=== PATIENT | female | born 1950 | race African-American/Black ===

== ENCOUNTER 2021-01-23 09:42 | Inpatient (IN) | payer BC ==
[~2021-01-23] VITALS: Ht 165.1 cm; Wt 89.9 kg
--- NOTE | 2021-01-23 10:44 | RAD ---
CT of the chest without contrast: Clinical History: Reason: fell on stair steps, landed on back, ribs pain, chest pain, back pain / Sp l. Instructions: / History: . Axial helical images of the chest were obtained without contrast. Mild groundglass opacities likely discoid atelectasis. There is a moderate hiatal hernia. There is no mediastinal or hilar lymphadenopathy. Impression: No acute findings. End impression CT thoracic spine without contrast History: Reason: fell on stair steps, landed on back, ribs pain, chest pain, back pain / Spl. Instruc tions: / History: Axial helical images of the thoracic spine were obtained without contrast. Axial, coronal and sagitta l reconstruction was performed. Findings: There is a mildly comminuted fracture of the T8 vertebral body with mild to moderate loss of stature anteriorly and centrally to approximately 65 percent and wedge-shaped deformity. Fracture lines are s een throughout the vertebral body although there is no fracture lines in the pedicles. There is no re tropulsion. The remaining vertebral bodies have normal stature. There is mild kyphosis. The vertebral bodies are aligned. Evaluation of the central canal is limited without contrast. There is no evidence of significant cent ral stenosis. There is marked narrowing of the right T8-T9 neuroforamen. Impression: Acute T8 vertebral body compression fracture with marked narrowing of the right neuroforamen at T8-T9 . End impression CT lumbar spine without contrast History: Back pain Axial helical images of the lumbar spine were obtained without contrast. Axial, coronal and sagittal reconstruction was performed. Findings: The vertebral bodies are aligned. There is no loss of vertebral body stature. Evaluation of the central canal is limited without contrast. There is no significant central or neuro foraminal stenosis. There is a 2.5 cm hypoattenuating lesion arising posteriorly from the right kidney. Impression: 1. Indeterminate lesion right kidney. The patient should've a follow-up ultrasound as an outpatient. 2. No acute findings in the lumbosacral spine. See CT thoracic spine. End impression PQRS Compliance Statement: One or more of the following individualized dose reduction techniques were utilized for this examinat ion: 1. Automated exposure control 2. Adjustment of the mA and/or kV according to patient size 3. Use of iterative reconstruction technique Electronically signed by: Gabino Lo III, MD (01/23/2021 10:42 AM) [facility]
[2021-01-23] MEDS ORDERED: HYDROcodone/APAP 5/325MG 1 TAB TABLET PO ONE (10:45)
[2021-01-23] MEDS ORDERED: HYDROcodone/APAP 5/325MG 1 TAB TABLET ONE (10:47)
--- NOTE | 2021-01-23 11:36 | PHYS DOC ---
Past Medical History Past Medical History: Diabetes-Type II, High Cholesterol, Hypertension Past Surgical History: Hysterectomy Smoking Status: Never Smoker Alcohol Use: None General Adult EDM: Chief Complaint: MECHANICAL FALL HPI: HPI: Patient is a 70 year old female who presented to ER for evaluation of mid back pain after she fell at home. Patient said she was walking down stair, slipped on the carpet step, hit her back on the step. No head or neck injury. No pelvic pain, no extremity pain. She denied any bowel or bladder incontinent. Patient denies any nausea vomiting. Patient denies any weakness or numbness in her extremities. Review of Systems: Review of Systems: Constitutional: Denies fever or chills. [] Eyes: Denies change in visual acuity. [] HENT: Denies nasal congestion or sore throat. [] Respiratory: Denies cough or shortness of breath. [] Cardiovascular: Denies chest pain or edema. [] GI: Denies abdominal pain, nausea, vomiting, bloody stools or diarrhea. [] : Denies dysuria. [] Musculoskeletal: positive midback pain. Integument: Denies rash. [] Neurologic: Denies headache, focal weakness or sensory changes. [] Endocrine: Denies polyuria or polydipsia. [] Lymphatic: Denies swollen glands. [] Psychiatric: Denies depression or anxiety. [] Heart Score: C/O Chest Pain: N/A Risk Factors: Risk Factors: DM, Current or recent (<one month) smoker, HTN, HLP, family history of CAD, obesity. Risk Scores: Score 0 - 3: 2.5% MACE over next 6 weeks - Discharge Home Score 4 - 6: 20.3% MACE over next 6 weeks - Admit for Clinical Observation Score 7 - 10: 72.7% MACE over next 6 weeks - Early Invasive Strategies Current Medications: Current Medications Medications (Trade) Dose Ordered Sig/Meme Start Time Stop Time Status Last Admin Dose Admin Acetaminophen/ Hydrocodone Bitart (Lortab 5/325) 1 tab STK-MED ONCE 01/23/21 10:47 01/23/21 10:47 DC Allergies: Allergies: Allergies Coded Allergies Type Severity Reaction Last Updated Verified acetaminophen Adverse Reaction Unknown 01/23/21 Yes codeine Adverse Reaction Unknown 01/23/21 Yes Physical Exam: PE: Constitutional: Well developed, well nourished, no acute distress, non-toxic ap pearance. [] HENT: Normocephalic, atraumatic, bilateral external ears normal, oropharynx moist, no oral exudates, nose normal. [] Eyes: PERRLA, EOMI, conjunctiva normal, no discharge. [] Neck: Normal range of motion, no tenderness, supple, no stridor. [] Cardiovascular:Heart rate regular rhythm, no murmur [] Lungs & Thorax: Bilateral breath sounds clear to auscultation [] Abdomen: Bowel sounds normal, soft, no tenderness, no masses, no pulsatile masses. [] Skin: Warm, dry, no erythema, no rash. [] Back: There is midline tenderness to palpation at T8/T9 AREA. NO BONY STEP OFF. Extremities: No tenderness, no cyanosis, no clubbing, ROM intact, no edema. [] Neurologic: Alert and oriented X 3, normal motor function, normal sensory function, no focal deficits noted. [] Psychologic: Affect normal, judgement normal, mood normal. [] Current Patient Data: Vital Signs: Vital Signs Date Time Temp Pulse Resp B/P (MAP) Pulse Ox O2 Delivery O2 Flow Rate FiO2 01/23/21 10:49 16 99 Room Air 01/23/21 09:45 98.9 67 184/86 (118) 98.9 EKG: EKG: [] Radiology/Procedures: Radiology/Procedures: [][facility] [address] [place] [address] IMAGING REPORT Signed PATIENT: TALI MCCOLLUM ACCOUNT: [id number] : 1950 LOCATION: ER AGE: 70 SEX: F EXAM STATUS: PRE ER ORD. PHYSICIAN: ABHI CASTRO DO REASON: fell on stair steps, landed on back, ribs pain, chest pain, back pain PROCEDURE: CT THORACIC SPINE WO CONTRAST CT of the chest without contrast: Clinical History: Reason: fell on stair steps, landed on back, ribs pain, chest pain, back pain / Spl. Instructions: / History: . Axial helical images of the chest were obtained without contrast. Mild groundglass opacities likely discoid atelectasis. There is a moderate hiatal hernia. There is no mediastinal or hilar lymphadenopathy. Impression: No acute findings. End impression CT thoracic spine without contrast History: Reason: fell on stair steps, landed on back, ribs pain, chest pain, back pain / Spl. Instructions: / History: Axial helical images of the thoracic spine were obtained without contrast. Axial, coronal and sagittal reconstruction was performed. Findings: There is a mildly comminuted fracture of the T8 vertebral body with mild to moderate loss of stature anteriorly and centrally to approximately 65 percent and wedge-shaped deformity. Fracture lines are seen throughout the vertebral body although there is no fracture lines in the pedicles. There is no retropulsion. The remaining vertebral bodies have normal stature. There is mild kyphosis. The vertebral bodies are aligned. Evaluation of the central canal is limited without contrast. There is no evidence of significant central stenosis. There is marked narrowing of the right T8-T9 neuroforamen. Impression: Acute T8 vertebral body compression fracture with marked narrowing of the right neuroforamen at T8-T9. End impression CT lumbar spine without contrast History: Back pain Axial helical images of the lumbar spine were obtained without contrast. Axial, coronal and sagittal reconstruction was performed. Findings: The vertebral bodies are aligned. There is no loss of vertebral body stature. Evaluation of the central canal is limited without contrast. There is no significant central or neuroforaminal stenosis. There is a 2.5 cm hypoattenuating lesion arising posteriorly from the right kidney. Impression: 1. Indeterminate lesion right kidney. The patient should've a follow-up ul trasound as an outpatient. 2. No acute findings in the lumbosacral spine. See CT thoracic spine. End impression PQRS Compliance Statement: One or more of the following individualized dose reduction techniques were utilized for this examination: 1. Automated exposure control 2. Adjustment of the mA and/or kV according to patient size 3. Use of iterative reconstruction technique Electronically signed by: Antione Ramirez III, MD (01/23/2021 10:42 AM) [facility] DICTATED and SIGNED BY: ANTIONE RAMIREZ III, MD DATE: 01/23/21 [id number] 0 Course & Med Decision Making: Course & Med Decision Making Pertinent Labs and Imaging studies reviewed. (See chart for details) Patient is a 70-year-old female who presented to ER after she fell walking down her stairs. Patient hit her back on the step, having severe pain. CT scan her chest thoracic lumbar spine show compression fracture at T8. Patient had no neurological deficits. Discussed with the neurosurgeon on-call Dr. Shyam Figueroa who recommended to admit the patient to hospital, bedrest, will see her today for evaluation for TLSO brace. Discussed with Dr. Underwood the hospitalist who agreed to admit the patient Dragon Disclaimer: Valerio Disclaimer: This electronic medical record was generated, in whole or in part, using a voice recognition dictation system. Departure Departure Impression: Primary Impression: Compression fracture of T8 vertebra Disposition: ADMITTED INPATIENT Admitting Physician: [facility] (Dr. Underwood) Condition: STABLE Referrals: EJ LAN MD (PCP) ABHI CASTRO DO January 23, 2021 11:36
[2021-01-23] MEDS ORDERED: MORPHINE SULFATE 2 MG/ML VIAL. IV PRN (12:00)
[2021-01-23] MEDS ORDERED: ONDANSETRON PF 4 MG/2 ML VIAL. IV PRN (12:00)
[2021-01-23 14:00] VITALS: BP 161/61
[2021-01-23] MEDS ORDERED: LISI1TAB37 PO (14:32)
[2021-01-23] MEDS ORDERED: METF500T16 PO (14:32)
[2021-01-23] MEDS ORDERED: ROSU10TA26 PO (14:32)
[2021-01-23] MEDS ORDERED: amLODIPine BESYLATE 5 MG TABLET PO ONE (15:00)
[2021-01-23] MEDS ORDERED: POLYETHYLENE GLYCOL 3350 17 GM PACKET. PO PRN (15:00)
[2021-01-23] MEDS: DOCUSATE SODIUM 100 MG CAPSULE. PO SCH (15:34)
[2021-01-23] MEDS: oxyCODONE/APAP 5/325 1 TAB TABLET PO PRN ×2 (15:57→20:53)
--- NOTE | 2021-01-23 16:14 | PDOC ---
PROGRESS NOTES Date of Service DATE: 01/23/21 TIME: 16:11 Subjective Subjective patient seen and examined consulted for thoracic fracture fell walking down stairs, landed on back c/o severe back pain, no lower extremity symptoms neuro intact, tenderness with palaption of lower thoracic region CT with complex fracture of body of T8, posterior elements intact brace ordered, bedrest until brace available Consult Dr. Mcguire Objective Objective Vital Signs Date Time Temp Pulse Resp B/P (MAP) Pulse Ox O2 Delivery O2 Flow Rate FiO2 01/23/21 15:57 Room Air 01/23/21 15:53 63 161/61 01/23/21 14:00 98.6 18 99 98.6 Assessment Assessment Problems Medical Problems: (1) Compression fracture of T8 vertebra Status: Acute Comment Review of Relevant I have reviewed the following items felisha (where applicable) has been applied. Labs Laboratory Tests Test 01/23/21 14:21 Glucose (Fingerstick) 111 mg/dL (70-99) Laboratory Tests Test 01/23/21 14:21 Glucose (Fingerstick) 111 mg/dL (70-99) Medications Current Medications Acetaminophen/ Hydrocodone Bitart (Lortab 5/325) 2 tab 1X ONCE PO Last administered on 01/23/21at 10:49; Start 01/23/21 at 10:45; Stop 01/23/21 at 10:47; Status DC Acetaminophen/ Hydrocodone Bitart (Lortab 5/325) 1 tab STK-MED ONCE .ROUTE ; Start 01/23/21 at 10:47; Stop 01/23/21 at 10:47; Status DC Ondansetron HCl (Zofran) 4 mg PRN Q8HRS PRN IV NAUSEA/VOMITING; Start 01/23/21 at 12:00; Stop 01/24/21 at 11:59 Morphine Sulfate (Morphine Sulfate) 2 mg PRN Q2HR PRN IV PAIN; Start 01/23/21 at 12:00; Stop 01/24/21 at 11:59 Oxycodone/ Acetaminophen (Percocet 5/325) 1 tab PRN Q4HRS PRN PO PAIN Last administered on 01/23/21at 15:57; Start 01/23/21 at 15:00 Polyethylene Glycol (miraLAX PACKET) 17 gm PRN DAILY PRN PO CONSTIPATION; Start 01/23/21 at 15:00 Metformin HCl (Glucophage) 500 mg NOON PO ; Start 01/24/21 at 12:00 Lisinopril (Prinivil) 20 mg DAILY PO ; Start 01/24/21 at 09:00 Atorvastatin Calcium (Lipitor) 40 mg DAILY PO ; Start 01/24/21 at 09:00 Amlodipine Besylate (Norvasc) 2.5 mg 1X ONCE PO Last administered on 01/23/21at 15:53; Start 01/23/21 at 15:00; Stop 01/23/21 at 15:01; Status DC Hydrochlorothiazide (Microzide) 12.5 mg DAILY PO ; Start 01/24/21 at 09:00 Docusate Sodium (Colace) 100 mg DAILY PO ; Start 01/23/21 at 16:00 Active Scripts Active Reported Lisinopril-Hctz 20-12.5 Mg Tab (Lisinopril/Hydrochlorothiazide) 1 Each Tablet 1 Tab PO DAILY Metformin Hcl 500 Mg Tablet 500 Mg PO NOON Rosuvastatin Calcium 10 Mg Tablet 10 Mg PO DAILY Vitals/I & O Vital Sign - Last 24 Hours 01/23/21 01/23/21 01/23/21 01/23/21 09:45 10:24 10:49 10:58 Temp 98.9 98.9 Pulse 67 67 66 Resp 16 16 16 16 B/P (MAP) 184/86 (118) 203/88 (126) 184/77 (112) Pulse Ox 96 99 99 99 O2 Delivery Room Air Room Air Room Air Room Air 01/23/21 01/23/21 01/23/21 01/23/21 11:28 14:00 15:53 15:57 Temp 98.6 98.6 Pulse 62 63 63 Resp 16 18 B/P (MAP) 192/79 (116) 161/61 (94) 161/61 Pulse Ox 99 99 O2 Delivery Room Air Room Air Room Air Justifications for Admission Other Justification ALEKSANDAR FARLEY MD January 23, 2021 16:14
--- NOTE | 2021-01-23 17:24 | PDOC1 ---
History and Physical Date of Admission Date of Admission DATE: 01/23/21 TIME: 17:20 Source Source: Chart review, Patient History of Present Illness History of Present Illness Ms. bland, is a 70 year old female who is admitted for acute back pain after a fall. She was walking down stair, slipped on the carpet step, hit her back on the step. did not lose consciousness, and now has back pain, better with PO meds, will need soem more soon. she had questions about when she could get up or to shower. No head or neck injury. No pelvic pain, no extremity pain. Past Medical History Cardiovascular: HTN Musculoskeletal: low back pain Rheumatologic: No pertinent hx Endocrine: Diabetes Past Surgical History Past Surgical History: No pertinent history Family History Family History: Other (DVT) Social History Smoke: No ALCOHOL: none Drugs: None Current Problem List Problem List Problems Medical Problems: (1) Compression fracture of T8 vertebra Status: Acute Current Medications Current Medications Current Medications Acetaminophen/ Hydrocodone Bitart (Lortab 5/325) 2 tab 1X ONCE PO Last administered on 01/23/21at 10:49; Start 01/23/21 at 10:45; Stop 01/23/21 at 10:47; Status DC Acetaminophen/ Hydrocodone Bitart (Lortab 5/325) 1 tab STK-MED ONCE .ROUTE ; Start 01/23/21 at 10:47; Stop 01/23/21 at 10:47; Status DC Ondansetron HCl (Zofran) 4 mg PRN Q8HRS PRN IV NAUSEA/VOMITING; Start 01/23/21 at 12:00; Stop 01/24/21 at 11:59 Morphine Sulfate (Morphine Sulfate) 2 mg PRN Q2HR PRN IV PAIN; Start 01/23/21 at 12:00; Stop 01/24/21 at 11:59 Oxycodone/ Acetaminophen (Percocet 5/325) 1 tab PRN Q4HRS PRN PO PAIN Last administered on 01/23/21at 15:57; Start 01/23/21 at 15:00 Polyethylene Glycol (miraLAX PACKET) 17 gm PRN DAILY PRN PO CONSTIPATION; Start 01/23/21 at 15:00 Metformin HCl (Glucophage) 500 mg NOON PO ; Start 01/24/21 at 12:00 Lisinopril (Prinivil) 20 mg DAILY PO ; Start 01/24/21 at 09:00 Atorvastatin Calcium (Lipitor) 40 mg DAILY PO ; Start 01/24/21 at 09:00 Amlodipine Besylate (Norvasc) 2.5 mg 1X ONCE PO Last administered on 01/23/21at 15:53; Start 01/23/21 at 15:00; Stop 01/23/21 at 15:01; Status DC Hydrochlorothiazide (Microzide) 12.5 mg DAILY PO ; Start 01/24/21 at 09:00 Docusate Sodium (Colace) 100 mg DAILY PO ; Start 01/23/21 at 16:00 Active Scripts Active Reported Lisinopril-Hctz 20-12.5 Mg Tab (Lisinopril/Hydrochlorothiazide) 1 Each Tablet 1 Tab PO DAILY Metformin Hcl 500 Mg Tablet 500 Mg PO NOON Rosuvastatin Calcium 10 Mg Tablet 10 Mg PO DAILY Allergies Allergies: Coded Allergies: acetaminophen (Verified Adverse Reaction, Unknown, 01/23/21) dizziness codeine (Verified Adverse Reaction, Unknown, 01/23/21) dizziness ROS General: No: Chills, Night Sweats, Fatigue, Malaise, Appetite, Other PSYCHOLOGICAL ROS: No: Anxiety, Behavioral Disorder, Concentration difficultie, Decreased libido, Depression, Disorientation, Hallucinations, Hostility, Irritablity, Memory difficulties, Mood Swings, Obsessive thoughts, Physical abuse, Sexual abuse, Sleep disturbances, Suicidal ideation, Other Eyes: No Blurry vision, No Decreased vision, No Double vision, No Dry eyes, No Excessive tearing, No Eye Pain, No Itchy Eyes, No Loss of vision, No P hotophobia, No Scotomata, No Uses contacts, No Uses glasses, No Other HEENT: No: Heacaches, Visual Changes, Hearing change, Nasal congestion, Nasal discharge, Oral lesions, Sinus pain, Sore Throat, Epistaxis, Sneezing, Snoring, Tinnitus, Vertigo, Vocal changes, Other Respiratory: No: Cough, Hemoptysis, Orthopnea, Pleuritic Pain, Shortness of breath, SOB with excertion, Sputum Changes, Stridor, Tachypnea, Wheezing, Other Cardiovascular: No Chest Pain, No Palpitations, No Orthopnea, No Paroxysmal Noc. Dyspnea, No Edema, No Lt Headedness, No Other Gastrointestinal: Yes Constipation (at times); No Nausea, No Vomiting, No Abdominal Pain, No Diarrhea, No Melena, No Hematochezia, No Other Genitourinary: No Dysuria, No Frequency, No Incontinence, No Hematuria, No Retention, No Discharge, No Urgency, No Pain, No Flank Pain, No Other, No , No , No , No , No , No , No Musculoskeletal: Yes Joint Pain, Yes Joint Stiffness Neurological: Yes Gait Disturbance; No Behavorial Changes, No Bowel/Bladder ControlChng, No Confusion, No Dizziness, No Headaches, No Impaired Coord/balance, No Memory Loss, No Numbness/Tingling, No Seizures, No Speech Problems, No Tremors, No Visual Changes, No Weakness, No Other Skin: No Dry Skin, No Eczema, No Hair Changes, No Lumps, No Mole Changes, No Mottling, No Nail Changes, No Pruritus, No Rash, No Skin Lesion Changes, No Other, No Acne Physical Exam General: Alert, Cooperative, mild distress HEENT: PERRLA, Mucous membr. moist/pink Heart: no gallops, no murmurs Extremities: No cyanosis, No edema, Normal pulses Skin: No breakdown Neuro: Normal gait, Normal tone Psych/Mental Status: Mood NL Vitals Vitals Vital Signs Date Time Temp Pulse Resp B/P (MAP) Pulse Ox O2 Delivery O2 Flow Rate FiO2 01/23/21 16:27 Room Air 01/23/21 15:53 63 161/61 01/23/21 14:00 98.6 18 99 98.6 Labs Labs Laboratory Tests Test 01/23/21 14:21 Glucose (Fingerstick) 111 mg/dL (70-99) Laboratory Tests Test 01/23/21 14:21 Glucose (Fingerstick) 111 mg/dL (70-99) VTE Prophylaxis Ordered VTE Prophylaxis Devices: No VTE Pharmacological Prophylaxi: Yes Assessment/Plan Assessment/Plan fall, back pain acute T8 fracture, seen by NS, will need back brace to get up, try PT and OT after obese, BMI 31 htn dm2, metformin admit for back pain, not-ambulatory until brace constipation risk, 2 meds fam hx DVT, lovenox Justifications for Admission Other Justification ORVILLE PAZ MD January 23, 2021 17:24
[2021-01-23] MEDS ORDERED: ENOXAPARIN 40 MG/0.4 ML SYRINGE. SQ SCH (18:00)
[2021-01-23 19:00] VITALS: BP 154/64
[2021-01-23 23:00] VITALS: BP 145/57
[2021-01-24 03:00] VITALS: BP 136/62
[2021-01-24 07:00] VITALS: BP 157/64
[2021-01-24] MEDS: hydroCHLOROthiazide 12.5 MG CAPSULE PO SCH (08:05)
[2021-01-24] MEDS: ATORVASTATIN CALCIUM 40 MG TABLET. PO SCH (08:05)
[2021-01-24] MEDS: oxyCODONE/APAP 5/325 1 TAB TABLET PO PRN ×4 (08:05→23:16)
[2021-01-24] MEDS: LISINOPRIL 20 MG TABLET PO SCH (08:05)
[2021-01-24] MEDS: DOCUSATE SODIUM 100 MG CAPSULE. PO SCH (08:12)
--- NOTE | 2021-01-24 10:35 | PDOC ---
PROGRESS NOTES Date of Service: DATE: 01/24/21 TIME: 10:43 Chief Complaint Chief Complaint VTE Prophylaxis Ordered VTE Prophylaxis Devices: No VTE Pharmacological Prophylaxi: Yes Assessment/Plan Assessment/Plan fall, back pain acute T8 fracture, seen by NS, will need back brace to get up, try PT and OT after marked narrowing of the right T8-T9 neuroforamen. mildly comminuted fracture of the T8 vertebral body with mild to moderate loss of stature anteriorly and centrally to approximately 65 percent and wedge-shaped deformity. Fracture lines are seen throughout the vertebral body although there is no fracture lines in the pedicles. no retropulsion. obese, BMI 31 htn dm2, metformin plan admit for acute intractable back pain, not-ambulatory until brace constipation risk, 2 meds Neurosurgery consult fam hx DVT, lovenox brace ordered, bedrest until brace available Consult Dr. Mcguire d/w rn Justifications for Admission Justifications for Admission Other Justification History of Present Illness History of Present Illness Source Source: Chart review, Patient History of Present Illness History of Present Illness Ms. bland, is a 70 year old female who is admitted for acute back pain after a fall. She was walking down stair, slipped on the carpet step, hit her back on the step. did not lose consciousness, and now has back pain, better with PO meds, will need soem more soon. she had questions about when she could get up or to shower. No head or neck injury. No pelvic pain, no extremity pain. Past Medical History Cardiovascular: HTN Musculoskeletal: low back pain Rheumatologic: No pertinent hx Endocrine: Diabetes Past Surgical History Past Surgical History: No pertinent history Family History Family History: Other (DVT) Social History Smoke: No ALCOHOL: none Drugs: None Current Problem List Problem List Problems Medical Problems: (1) Compression fracture of T8 vertebra Status: Acute Current Medications Current Medications Current Medications Acetaminophen/ Hydrocodone Bitart (Lortab 5/325) 2 tab 1X ONCE PO Last administered on 01/23/21at 10:49; Start 01/23/21 at 10:45; Stop 01/23/21 at 10:47; Status DC Acetaminophen/ Hydrocodone Bitart (Lortab 5/325) 1 tab STK-MED ONCE .ROUTE ; Start 01/23/21 at 10:47; Stop 01/23/21 at 10:47; Status DC Ondansetron HCl (Zofran) 4 mg PRN Q8HRS PRN IV NAUSEA/VOMITING; Start 01/23/21 at 12:00; Stop 01/24/21 at 11:59 Morphine Sulfate (Morphine Sulfate) 2 mg PRN Q2HR PRN IV PAIN; Start 01/23/21 at 12:00; Stop 01/24/21 at 11:59 Oxycodone/ Acetaminophen (Percocet 5/325) 1 tab PRN Q4HRS PRN PO PAIN Last administered on 01/23/21at 15:57; Start 01/23/21 at 15:00 Polyethylene Glycol (miraLAX PACKET) 17 gm PRN DAILY PRN PO CONSTIPATION; Start 01/23/21 at 15:00 Metformin HCl (Glucophage) 500 mg NOON PO ; Start 01/24/21 at 12:00 Lisinopril (Prinivil) 20 mg DAILY PO ; Start 01/24/21 at 09:00 Atorvastatin Calcium (Lipitor) 40 mg DAILY PO ; Start 01/24/21 at 09:00 Amlodipine Besylate (Norvasc) 2.5 mg 1X ONCE PO Last administered on 01/23/21at 15:53; Start 01/23/21 at 15:00; Stop 01/23/21 at 15:01; Status DC Hydrochlorothiazide (Microzide) 12.5 mg DAILY PO ; Start 01/24/21 at 09:00 Docusate Sodium (Colace) 100 mg DAILY PO ; Start 01/23/21 at 16:00 Active Scripts Active Reported Lisinopril-Hctz 20-12.5 Mg Tab (Lisinopril/Hydrochlorothiazide) 1 Each Tablet 1 Tab PO DAILY Metformin Hcl 500 Mg Tablet 500 Mg PO NOON Rosuvastatin Calcium 10 Mg Tablet 10 Mg PO DAILY Allergies Allergies: Coded Allergies: acetaminophen (Verified Adverse Reaction, Unknown, 01/23/21) dizziness codeine (Verified Adverse Reaction, Unknown, 01/23/21) dizziness ROS General: No: Chills, Night Sweats, Fatigue, Malaise, Appetite, Other PSYCHOLOGICAL ROS: No: Anxiety, Behavioral Disorder, Concentration difficultie, Decreased libido, Depression, Disorientation, Hallucinations, Hostility, Irritablity, Memory difficulties, Mood Swings, Obsessive thoughts, Physical abuse, Sexual abuse, Sleep disturbances, Suicidal ideation, Other Eyes: No Blurry vision, No Decreased vision, No Double vision, No Dry eyes, No Excessive tearing, No Eye Pain, No Itchy Eyes, No Loss of vision, No Photophobi a, No Scotomata, No Uses contacts, No Uses glasses, No Other HEENT: No: Heacaches, Visual Changes, Hearing change, Nasal congestion, Nasal discharge, Oral lesions, Sinus pain, Sore Throat, Epistaxis, Sneezing, Snoring, Tinnitus, Vertigo, Vocal changes, Other Respiratory: No: Cough, Hemoptysis, Orthopnea, Pleuritic Pain, Shortness of breath, SOB with excertion, Sputum Changes, Stridor, Tachypnea, Wheezing, Other Cardiovascular: No Chest Pain, No Palpitations, No Orthopnea, No Paroxysmal Noc. Dyspnea, No Edema, No Lt Headedness, No Other Gastrointestinal: Yes Constipation (at times); No Nausea, No Vomiting, No Abdominal Pain, No Diarrhea, No Melena, No Hematochezia, No Other Genitourinary: No Dysuria, No Frequency, No Incontinence, No Hematuria, No Retention, No Discharge, No Urgency, No Pain, No Flank Pain, No Other, No , No , No , No , No , No , No Musculoskeletal: Yes Joint Pain, Yes Joint Stiffness Neurological: Yes Gait Disturbance; No Behavorial Changes, No Bowel/Bladder ControlChng, No Confusion, No Dizziness, No Headaches, No Impaired Coord/balance, No Memory Loss, No Numbness/Tingling, No Seizures, No Speech Problems, No Tremors, No Visual Changes, No Weakness, No Other Skin: No Dry Skin, No Eczema, No Hair Changes, No Lumps, No Mole Changes, No Mottling, No Nail Changes, No Pruritus, No Rash, No Skin Lesion Changes, No Other, No Acne Vitals Vitals Vital Signs Date Time Temp Pulse Resp B/P (MAP) Pulse Ox O2 Delivery O2 Flow Rate FiO2 01/24/21 08:05 67 136/62 01/24/21 08:05 Room Air 01/24/21 03:00 98.4 18 93 98.4 Physical Exam General: Alert, Cooperative, mild distress Extremities: No cyanosis, No edema, Normal pulses Skin: No breakdown Labs LABS CT of the chest without contrast: Clinical History: Reason: fell on stair steps, landed on back, ribs pain, chest pain, back pain / Spl. Instructions: / History: . Axial helical images of the chest were obtained without contrast. Mild groundglass opacities likely discoid atelectasis. There is a moderate hiatal hernia. There is no mediastinal or hilar lymphadenopathy. Impression: No acute findings. End impression CT thoracic spine without contrast History: Reason: fell on stair steps, landed on back, ribs pain, chest pain, back pain / Spl. Instructions: / History: Axial helical images of the thoracic spine were obtained without contrast. Axial, coronal and sagittal reconstruction was performed. Findings: There is a mildly comminuted fracture of the T8 vertebral body with mild to moderate loss of stature anteriorly and centrally to approximately 65 percent and wedge-shaped deformity. Fracture lines are seen throughout the vertebral body although there is no fracture lines in the pedicles. There is no retropulsion. The remaining vertebral bodies have normal stature. There is mild kyphosis. The vertebral bodies are aligned. Evaluation of the central canal is limited without contrast. There is no evidence of significant central stenosis. There is marked narrowing of the right T8-T9 neuroforamen. Impression: Acute T8 vertebral body compression fracture with marked narrowing of the right neuroforamen at T8-T9. End impression CT lumbar spine without contrast History: Back pain Axial helical images of the lumbar spine were obtained without contrast. Axial, coronal and sagittal reconstruction was performed. Findings: The vertebral bodies are aligned. There is no loss of vertebral body stature. Evaluation of the central canal is limited without contrast. There is no significant central or neuroforaminal stenosis. There is a 2.5 cm hypoattenuating lesion arising posteriorly from the right kidney. Impression: 1. Indeterminate lesion right kidney. The patient should've a follow-up ultrasound as an outpatient. 2. No acute findings in the lumbosacral spine. See CT thoracic spine. End impression PQRS Compliance Statement: One or more of the following individualized dose reduction techniques were utilized for this examination: 1. Automated exposure control 2. Adjustment of the mA and/or kV according to patient size 3. Use of iterative reconstruction technique Electronically signed by: Antione Ramirez III, MD (01/23/2021 10:42 AM) [facility] DICTATED and SIGNED BY: ANTIONE RAMIREZ III, MD DATE: 01/23/21 [id number] Laboratory Tests Test 01/23/21 14:21 01/24/21 07:47 Glucose (Fingerstick) 111 mg/dL (70-99) 126 mg/dL (70-99) Assessment and Plan Assessmemt and Plan Problems Medical Problems: (1) Compression fracture of T8 vertebra Status: Acute Comment Review of Relevant I have reviewed the following items felisha (where applicable) has been applied. Labs Laboratory Tests Test 01/23/21 14:21 01/24/21 07:47 Glucose (Fingerstick) 111 mg/dL (70-99) 126 mg/dL (70-99) Laboratory Tests Test 01/23/21 14:21 01/24/21 07:47 Glucose (Fingerstick) 111 mg/dL (70-99) 126 mg/dL (70-99) Medications Current Medications Acetaminophen/ Hydrocodone Bitart (Lortab 5/325) 2 tab 1X ONCE PO Last administered on 01/23/21at 10:49; Start 01/23/21 at 10:45; Stop 01/23/21 at 10:47; Status DC Acetaminophen/ Hydrocodone Bitart (Lortab 5/325) 1 tab STK-MED ONCE .ROUTE ; Start 01/23/21 at 10:47; Stop 01/23/21 at 10:47; Status DC Ondansetron HCl (Zofran) 4 mg PRN Q8HRS PRN IV NAUSEA/VOMITING; Start 01/23/21 at 12:00; Stop 01/24/21 at 11:59 Morphine Sulfate (Morphine Sulfate) 2 mg PRN Q2HR PRN IV PAIN Last administered on 01/24/21at 01:47; Start 01/23/21 at 12:00; Stop 01/24/21 at 11:59 Oxycodone/ Acetaminophen (Percocet 5/325) 1 tab PRN Q4HRS PRN PO PAIN Last administered on 01/24/21at 08:05; Start 01/23/21 at 15:00 Polyethylene Glycol (miraLAX PACKET) 17 gm PRN DAILY PRN PO CONSTIPATION; Start 01/23/21 at 15:00 Metformin HCl (Glucophage) 500 mg NOON PO ; Start 01/24/21 at 12:00 Lisinopril (Prinivil) 20 mg DAILY PO Last administered on 01/24/21at 08:05; Start 01/24/21 at 09:00 Atorvastatin Calcium (Lipitor) 40 mg DAILY PO Last administered on 01/24/21at 08:05; Start 01/24/21 at 09:00 Amlodipine Besylate (Norvasc) 2.5 mg 1X ONCE PO Last administered on 01/23/21at 15:53; Start 01/23/21 at 15:00; Stop 01/23/21 at 15:01; Status DC Hydrochlorothiazide (Microzide) 12.5 mg DAILY PO Last administered on 01/24/21at 08:05; Start 01/24/21 at 09:00 Docusate Sodium (Colace) 100 mg DAILY PO ; Start 01/23/21 at 16:00 Enoxaparin Sodium (Lovenox Per Pharmacy Prophylaxis Dosing) 1 each PRN DAILY PRN MC SEE COMMENTS; Start 01/23/21 at 17:30 Enoxaparin Sodium (Lovenox 40mg Syringe) 40 mg Q24H SQ ; Start 01/23/21 at 18:00 Active Scripts Active Reported Lisinopril-Hctz 20-12.5 Mg Tab (Lisinopril/Hydrochlorothiazide) 1 Each Tablet 1 Tab PO DAILY Metformin Hcl 500 Mg Tablet 500 Mg PO NOON Rosuvastatin Calcium 10 Mg Tablet 10 Mg PO DAILY Vitals/I & O Vital Sign - Last 24 Hours 01/23/21 01/23/21 01/23/21 01/23/21 10:49 10:58 11:28 14:00 Temp 98.6 98.6 Pulse 66 62 63 Resp 16 16 16 18 B/P (MAP) 184/77 (112) 192/79 (116) 161/61 (94) Pulse Ox 99 99 99 99 O2 Delivery Room Air Room Air Room Air Room Air 01/23/21 01/23/21 01/23/21 01/23/21 15:53 15:57 16:27 19:00 Temp 98.3 98.3 Pulse 63 61 Resp 18 B/P (MAP) 161/61 154/64 (94) Pulse Ox 94 O2 Delivery Room Air Room Air Room Air 01/23/21 01/23/21 01/23/21 01/24/21 20:53 21:27 23:00 01:47 Temp 98.3 98.3 Pulse 66 Resp 18 B/P (MAP) 145/57 (86) Pulse Ox 94 94 91 91 O2 Delivery Room Air Room Air 01/24/21 01/24/21 01/24/21 01/24/21 02:17 03:00 08:05 08:05 Temp 98.4 98.4 Pulse 67 67 Resp 18 B/P (MAP) 136/62 (86) 136/62 Pulse Ox 91 93 O2 Delivery Room Air Room Air Intake and Output 01/23/21 01/23/21 01/24/21 14:52 22:52 06:52 Output Total 0 ml Balance 0 ml Justicifation of Admission Dx: Justifications for Admission: Justification of Admission Dx: Yes Comments: intractable pain t8 fx LINCOLN NDIAYE MD January 24, 2021 10:35
[2021-01-24] MEDS: metFORMIN 500 MG TABLET PO SCH (12:39)
[2021-01-24 15:00] VITALS: BP 142/60
[2021-01-24 15:04] LABS: BASO % 1 % (0-3); EOS # 0.3 x10^3/uL (0.0-0.7); EOS % 5 % (0-3); HEMATOCRIT 37.9 % (36.0-47.0); HEMOGLOBIN 12.4 g/dL (12.0-15.5); LYMPH # 1.6 x10^3/uL (1.0-4.8); LYMPH % 28 % (24-48); MEAN CORPUSCULAR HEMOGLOBIN 26 pg (25-35); MEAN CORPUSCULAR HGB CONC 33 g/dL (31-37); MEAN CORPUSCULAR VOLUME 79 fL (79-100); MONO # 0.5 x10^3/uL (0.0-1.1); MONO % 8 % (0-9); NEUT # 3.3 x10^3/uL (1.8-7.7); NEUT % 59 % (31-73); PLATELET COUNT 197 x10^3/uL (140-400); RED BLOOD COUNT 4.81 x10^6/uL (3.50-5.40); RED CELL DISTRIBUTION WIDTH 14.2 % (11.5-14.5); WHITE BLOOD COUNT 5.6 x10^3/uL (4.0-11.0)
[2021-01-24 15:13] LABS: PROTHROMBIN TIME PATIENT 12.5 SEC (11.7-14.0)
[2021-01-24] MEDS ORDERED: SIMETHICONE 80 MG TAB.CHEW PO PRN (15:15)
[2021-01-24 15:42] LABS: ALBUMIN 3.5 g/dL (3.4-5.0); ALBUMIN/GLOBULIN RATIO 1.1 (1.0-1.7); CALCIUM 8.8 mg/dL (8.5-10.1); CREATININE 0.7 mg/dL (0.6-1.0); GFR 100.4; POTASSIUM 3.2 mmol/L (3.5-5.1); TOTAL BILIRUBIN 0.5 mg/dL (0.2-1.0); TOTAL PROTEIN 6.8 g/dL (6.4-8.2)
[2021-01-24 19:00] VITALS: BP 160/52
[2021-01-24] MEDS: ENOXAPARIN 40 MG/0.4 ML SYRINGE. SQ SCH (21:06)
[2021-01-24 23:00] VITALS: BP 156/71
[2021-01-25 03:00] VITALS: BP 149/65
[2021-01-25] MEDS: oxyCODONE/APAP 5/325 1 TAB TABLET PO PRN ×2 (05:24→20:29)
[2021-01-25 07:00] VITALS: BP_SYST 129; BP_SYST 169; BP_DIAS 67; BP_DIAS 86
[2021-01-25] MEDS: hydroCHLOROthiazide 12.5 MG CAPSULE PO SCH (08:29)
[2021-01-25] MEDS: DOCUSATE SODIUM 100 MG CAPSULE. PO SCH (08:29)
[2021-01-25] MEDS: LISINOPRIL 20 MG TABLET PO SCH (08:34)
[2021-01-25 08:43] LABS: CREATININE 0.5 mg/dL (0.6-1.0)
[2021-01-25] MEDS ORDERED: DOCUSATE SODIUM 283 MG/5 ML ENEMA. PR PRN (09:00)
[2021-01-25] MEDS: ATORVASTATIN CALCIUM 40 MG TABLET. PO SCH (09:00)
[2021-01-25] MEDS: PANTOPRAZOLE 40 MG TABLET.DR. PO SCH (09:56)
[2021-01-25] MEDS: tiZANidine 4 MG TABLET. PO SCH ×3 (09:56→22:48)
[2021-01-25] MEDS: BISACODYL 5 MG TABLET.DR. PO SCH (09:56)
[2021-01-25] MEDS: SENNOSIDES/DOCUSATE 8.6/50MG TABLET. PO SCH ×2 (10:00→20:25)
[2021-01-25 11:00] VITALS: BP 166/78
--- NOTE | 2021-01-25 11:38 | PDOC ---
PROGRESS NOTES Date of Service: DATE: 01/25/21 TIME: 11:38 Chief Complaint Chief Complaint VTE Prophylaxis Ordered VTE Prophylaxis Devices: No VTE Pharmacological Prophylaxi: Yes Assessment/Plan Assessment/Plan fall, back pain acute T8 fracture, seen by NS, will need back brace to get up, try PT and OT after marked narrowing of the right T8-T9 neuroforamen. mildly comminuted fracture of the T8 vertebral body with mild to moderate loss of stature anteriorly and centrally to approximately 65 percent and wedge-shaped deformity. Fracture lines are seen throughout the vertebral body although there is no fracture lines in the pedicles. no retropulsion. obese, BMI 31 htn dm2, metformin plan admit for acute intractable back pain, not-ambulatory until brace constipation risk, 2 meds Neurosurgery consult fam hx DVT, lovenox brace ordered, bedrest until brace available Consult Dr. Mcguire d/w rn Justifications for Admission Justifications for Admission Other Justification History of Present Illness History of Present Illness Source Source: Chart review, Patient History of Present Illness History of Present Illness Ms. bland, is a 70 year old female who is admitted for acute back pain after a fall. She was walking down stair, slipped on the carpet step, hit her back on the step. did not lose consciousness, and now has back pain, better with PO meds, will need soem more soon. she had questions about when she could get up or to shower. No head or neck injury. No pelvic pain, no extremity pain. Past Medical History Cardiovascular: HTN Musculoskeletal: low back pain Rheumatologic: No pertinent hx Endocrine: Diabetes Past Surgical History Past Surgical History: No pertinent history Family History Family History: Other (DVT) Social History Smoke: No ALCOHOL: none Drugs: None Current Problem List Problem List Problems Medical Problems: (1) Compression fracture of T8 vertebra Status: Acute Current Medications Current Medications Current Medications Acetaminophen/ Hydrocodone Bitart (Lortab 5/325) 2 tab 1X ONCE PO Last administered on 01/23/21at 10:49; Start 01/23/21 at 10:45; Stop 01/23/21 at 10:47; Status DC Acetaminophen/ Hydrocodone Bitart (Lortab 5/325) 1 tab STK-MED ONCE .ROUTE ; Start 01/23/21 at 10:47; Stop 01/23/21 at 10:47; Status DC Ondansetron HCl (Zofran) 4 mg PRN Q8HRS PRN IV NAUSEA/VOMITING; Start 01/23/21 at 12:00; Stop 01/24/21 at 11:59 Morphine Sulfate (Morphine Sulfate) 2 mg PRN Q2HR PRN IV PAIN; Start 01/23/21 at 12:00; Stop 01/24/21 at 11:59 Oxycodone/ Acetaminophen (Percocet 5/325) 1 tab PRN Q4HRS PRN PO PAIN Last administered on 01/23/21at 15:57; Start 01/23/21 at 15:00 Polyethylene Glycol (miraLAX PACKET) 17 gm PRN DAILY PRN PO CONSTIPATION; Start 01/23/21 at 15:00 Metformin HCl (Glucophage) 500 mg NOON PO ; Start 01/24/21 at 12:00 Lisinopril (Prinivil) 20 mg DAILY PO ; Start 01/24/21 at 09:00 Atorvastatin Calcium (Lipitor) 40 mg DAILY PO ; Start 01/24/21 at 09:00 Amlodipine Besylate (Norvasc) 2.5 mg 1X ONCE PO Last administered on 01/23/21at 15:53; Start 01/23/21 at 15:00; Stop 01/23/21 at 15:01; Status DC Hydrochlorothiazide (Microzide) 12.5 mg DAILY PO ; Start 01/24/21 at 09:00 Docusate Sodium (Colace) 100 mg DAILY PO ; Start 01/23/21 at 16:00 Active Scripts Active Reported Lisinopril-Hctz 20-12.5 Mg Tab (Lisinopril/Hydrochlorothiazide) 1 Each Tablet 1 Tab PO DAILY Metformin Hcl 500 Mg Tablet 500 Mg PO NOON Rosuvastatin Calcium 10 Mg Tablet 10 Mg PO DAILY Allergies Allergies: Coded Allergies: acetaminophen (Verified Adverse Reaction, Unknown, 01/23/21) dizziness codeine (Verified Adverse Reaction, Unknown, 01/23/21) dizziness ROS General: No: Chills, Night Sweats, Fatigue, Malaise, Appetite, Other PSYCHOLOGICAL ROS: No: Anxiety, Behavioral Disorder, Concentration difficultie, Decreased libido, Depression, Disorientation, Hallucinations, Hostility, Irritablity, Memory difficulties, Mood Swings, Obsessive thoughts, Physical abuse, Sexual abuse, Sleep disturbances, Suicidal ideation, Other Eyes: No Blurry vision, No Decreased vision, No Double vision, No Dry eyes, No Excessive tearing, No Eye Pain, No Itchy Eyes, No Loss of vision, No Photophobi a, No Scotomata, No Uses contacts, No Uses glasses, No Other HEENT: No: Heacaches, Visual Changes, Hearing change, Nasal congestion, Nasal discharge, Oral lesions, Sinus pain, Sore Throat, Epistaxis, Sneezing, Snoring, Tinnitus, Vertigo, Vocal changes, Other Respiratory: No: Cough, Hemoptysis, Orthopnea, Pleuritic Pain, Shortness of breath, SOB with excertion, Sputum Changes, Stridor, Tachypnea, Wheezing, Other Cardiovascular: No Chest Pain, No Palpitations, No Orthopnea, No Paroxysmal Noc. Dyspnea, No Edema, No Lt Headedness, No Other Gastrointestinal: Yes Constipation (at times); No Nausea, No Vomiting, No Abdominal Pain, No Diarrhea, No Melena, No Hematochezia, No Other Genitourinary: No Dysuria, No Frequency, No Incontinence, No Hematuria, No Retention, No Discharge, No Urgency, No Pain, No Flank Pain, No Other, No , No , No , No , No , No , No Musculoskeletal: Yes Joint Pain, Yes Joint Stiffness Neurological: Yes Gait Disturbance; No Behavorial Changes, No Bowel/Bladder ControlChng, No Confusion, No Dizziness, No Headaches, No Impaired Coord/balance, No Memory Loss, No Numbness/Tingling, No Seizures, No Speech Problems, No Tremors, No Visual Changes, No Weakness, No Other Skin: No Dry Skin, No Eczema, No Hair Changes, No Lumps, No Mole Changes, No Mottling, No Nail Changes, No Pruritus, No Rash, No Skin Lesion Changes, No Other, No Acne - pain 04/02 may need snf rehab D/W RN D/W DR MCGUIRE acute T8 fracture, seen by NS, will need back brace to get up, try PT and OT after marked narrowing of the right T8-T9 neuroforamen. mildly comminuted fracture of the T8 vertebral body with mild to moderate loss of stature anteriorly and centrally to approximately 65 percent and wedge-shaped deformity. Fracture lines are seen throughout the vertebral body although there is no fracture lines in the pedicles. no retropulsion. Vitals Vitals Vital Signs Date Time Temp Pulse Resp B/P (MAP) Pulse Ox O2 Delivery O2 Flow Rate FiO2 01/25/21 11:00 98.7 77 20 166/78 (107) 92 Room Air 98.7 Physical Exam General: Alert, Cooperative, mild distress Extremities: No cyanosis, No edema, Normal pulses Skin: No breakdown Labs LABS Laboratory Tests Test 01/24/21 14:45 01/24/21 20:05 01/25/21 06:10 01/25/21 07:02 White Blood Count 5.6 x10^3/uL (4.0-11.0) Red Blood Count 4.81 x10^6/uL (3.50-5.40) Hemoglobin 12.4 g/dL (12.0-15.5) Hematocrit 37.9 % (36.0-47.0) Mean Corpuscular Volume 79 fL (79-100) Mean Corpuscular Hemoglobin 26 pg (25-35) Mean Corpuscular Hemoglobin Concent 33 g/dL (31-37) Red Cell Distribution Width 14.2 % (11.5-14.5) Platelet Count 197 x10^3/uL (140-400) Neutrophils (%) (Auto) 59 % (31-73) Lymphocytes (%) (Auto) 28 % (24-48) Monocytes (%) (Auto) 8 % (0-9) Eosinophils (%) (Auto) 5 % (0-3) Basophils (%) (Auto) 1 % (0-3) Neutrophils # (Auto) 3.3 x10^3/uL (1.8-7.7) Lymphocytes # (Auto) 1.6 x10^3/uL (1.0-4.8) Monocytes # (Auto) 0.5 x10^3/uL (0.0-1.1) Eosinophils # (Auto) 0.3 x10^3/uL (0.0-0.7) Basophils # (Auto) 0.0 x10^3/uL (0.0-0.2) Prothrombin Time 12.5 SEC (11.7-14.0) Prothromb Time International Ratio 1.0 (0.8-1.1) Sodium Level 139 mmol/L (136-145) Potassium Level 3.2 mmol/L (3.5-5.1) Chloride Level 99 mmol/L (98-107) Carbon Dioxide Level 31 mmol/L (21-32) Anion Gap 9 (6-14) Blood Urea Nitrogen 9 mg/dL (7-20) Creatinine 0.7 mg/dL (0.6-1.0) 0.5 mg/dL (0.6-1.0) Estimated GFR (Cockcroft-Gault) 100.4 148.0 BUN/Creatinine Ratio 13 (6-20) Glucose Level 132 mg/dL (70-99) Calcium Level 8.8 mg/dL (8.5-10.1) Total Bilirubin 0.5 mg/dL (0.2-1.0) Aspartate Amino Transf (AST/SGOT) 14 U/L (15-37) Alanine Aminotransferase (ALT/SGPT) 22 U/L (14-59) Alkaline Phosphatase 100 U/L (46-116) Total Protein 6.8 g/dL (6.4-8.2) Albumin 3.5 g/dL (3.4-5.0) Albumin/Globulin Ratio 1.1 (1.0-1.7) Glucose (Fingerstick) 172 mg/dL (70-99) 150 mg/dL (70-99) Test 01/25/21 11:26 Glucose (Fingerstick) 144 mg/dL (70-99) Assessment and Plan Assessmemt and Plan Problems Medical Problems: (1) Compression fracture of T8 vertebra Status: Acute Comment Review of Relevant I have reviewed the following items felisha (where applicable) has been applied. Labs Laboratory Tests Test 01/23/21 14:21 01/24/21 07:47 01/24/21 14:45 01/24/21 20:05 Glucose (Fingerstick) 111 mg/dL (70-99) 126 mg/dL (70-99) 172 mg/dL (70-99) White Blood Count 5.6 x10^3/uL (4.0-11.0) Red Blood Count 4.81 x10^6/uL (3.50-5.40) Hemoglobin 12.4 g/dL (12.0-15.5) Hematocrit 37.9 % (36.0-47.0) Mean Corpuscular Volume 79 fL (79-100) Mean Corpuscular Hemoglobin 26 pg (25-35) Mean Corpuscular Hemoglobin Concent 33 g/dL (31-37) Red Cell Distribution Width 14.2 % (11.5-14.5) Platelet Count 197 x10^3/uL (140-400) Neutrophils (%) (Auto) 59 % (31-73) Lymphocytes (%) (Auto) 28 % (24-48) Monocytes (%) (Auto) 8 % (0-9) Eosinophils (%) (Auto) 5 % (0-3) Basophils (%) (Auto) 1 % (0-3) Neutrophils # (Auto) 3.3 x10^3/uL (1.8-7.7) Lymphocytes # (Auto) 1.6 x10^3/uL (1.0-4.8) Monocytes # (Auto) 0.5 x10^3/uL (0.0-1.1) Eosinophils # (Auto) 0.3 x10^3/uL (0.0-0.7) Basophils # (Auto) 0.0 x10^3/uL (0.0-0.2) Prothrombin Time 12.5 SEC (11.7-14.0) Prothromb Time International Ratio 1.0 (0.8-1.1) Sodium Level 139 mmol/L (136-145) Potassium Level 3.2 mmol/L (3.5-5.1) Chloride Level 99 mmol/L (98-107) Carbon Dioxide Level 31 mmol/L (21-32) Anion Gap 9 (6-14) Blood Urea Nitrogen 9 mg/dL (7-20) Creatinine 0.7 mg/dL (0.6-1.0) Estimated GFR (Cockcroft-Gault) 100.4 BUN/Creatinine Ratio 13 (6-20) Glucose Level 132 mg/dL (70-99) Calcium Level 8.8 mg/dL (8.5-10.1) Total Bilirubin 0.5 mg/dL (0.2-1.0) Aspartate Amino Transf (AST/SGOT) 14 U/L (15-37) Alanine Aminotransferase (ALT/SGPT) 22 U/L (14-59) Alkaline Phosphatase 100 U/L (46-116) Total Protein 6.8 g/dL (6.4-8.2) Albumin 3.5 g/dL (3.4-5.0) Albumin/Globulin Ratio 1.1 (1.0-1.7) Test 01/25/21 06:10 01/25/21 07:02 01/25/21 11:26 Creatinine 0.5 mg/dL (0.6-1.0) Estimated GFR (Cockcroft-Gault) 148.0 Glucose (Fingerstick) 150 mg/dL (70-99) 144 mg/dL (70-99) Laboratory Tests Test 01/24/21 14:45 01/24/21 20:05 01/25/21 06:10 01/25/21 07:02 White Blood Count 5.6 x10^3/uL (4.0-11.0) Red Blood Count 4.81 x10^6/uL (3.50-5.40) Hemoglobin 12.4 g/dL (12.0-15.5) Hematocrit 37.9 % (36.0-47.0) Mean Corpuscular Volume 79 fL (79-100) Mean Corpuscular Hemoglobin 26 pg (25-35) Mean Corpuscular Hemoglobin Concent 33 g/dL (31-37) Red Cell Distribution Width 14.2 % (11.5-14.5) Platelet Count 197 x10^3/uL (140-400) Neutrophils (%) (Auto) 59 % (31-73) Lymphocytes (%) (Auto) 28 % (24-48) Monocytes (%) (Auto) 8 % (0-9) Eosinophils (%) (Auto) 5 % (0-3) Basophils (%) (Auto) 1 % (0-3) Neutrophils # (Auto) 3.3 x10^3/uL (1.8-7.7) Lymphocytes # (Auto) 1.6 x10^3/uL (1.0-4.8) Monocytes # (Auto) 0.5 x10^3/uL (0.0-1.1) Eosinophils # (Auto) 0.3 x10^3/uL (0.0-0.7) Basophils # (Auto) 0.0 x10^3/uL (0.0-0.2) Prothrombin Time 12.5 SEC (11.7-14.0) Prothromb Time International Ratio 1.0 (0.8-1.1) Sodium Level 139 mmol/L (136-145) Potassium Level 3.2 mmol/L (3.5-5.1) Chloride Level 99 mmol/L (98-107) Carbon Dioxide Level 31 mmol/L (21-32) Anion Gap 9 (6-14) Blood Urea Nitrogen 9 mg/dL (7-20) Creatinine 0.7 mg/dL (0.6-1.0) 0.5 mg/dL (0.6-1.0) Estimated GFR (Cockcroft-Gault) 100.4 148.0 BUN/Creatinine Ratio 13 (6-20) Glucose Level 132 mg/dL (70-99) Calcium Level 8.8 mg/dL (8.5-10.1) Total Bilirubin 0.5 mg/dL (0.2-1.0) Aspartate Amino Transf (AST/SGOT) 14 U/L (15-37) Alanine Aminotransferase (ALT/SGPT) 22 U/L (14-59) Alkaline Phosphatase 100 U/L (46-116) Total Protein 6.8 g/dL (6.4-8.2) Albumin 3.5 g/dL (3.4-5.0) Albumin/Globulin Ratio 1.1 (1.0-1.7) Glucose (Fingerstick) 172 mg/dL (70-99) 150 mg/dL (70-99) Test 01/25/21 11:26 Glucose (Fingerstick) 144 mg/dL (70-99) Medications Current Medications Acetaminophen/ Hydrocodone Bitart (Lortab 5/325) 2 tab 1X ONCE PO Last admini stered on 01/23/21at 10:49; Start 01/23/21 at 10:45; Stop 01/23/21 at 10:47; Status DC Acetaminophen/ Hydrocodone Bitart (Lortab 5/325) 1 tab STK-MED ONCE .ROUTE ; Start 01/23/21 at 10:47; Stop 01/23/21 at 10:47; Status DC Ondansetron HCl (Zofran) 4 mg PRN Q8HRS PRN IV NAUSEA/VOMITING; Start 01/23/21 at 12:00; Stop 01/24/21 at 11:59; Status DC Morphine Sulfate (Morphine Sulfate) 2 mg PRN Q2HR PRN IV PAIN Last administered on 01/24/21at 01:47; Start 01/23/21 at 12:00; Stop 01/24/21 at 11:59; Status DC Oxycodone/ Acetaminophen (Percocet 5/325) 1 tab PRN Q4HRS PRN PO PAIN Last administered on 01/25/21at 05:24; Start 01/23/21 at 15:00 Polyethylene Glycol (miraLAX PACKET) 17 gm PRN DAILY PRN PO CONSTIPATION; Start 01/23/21 at 15:00 Metformin HCl (Glucophage) 500 mg NOON PO Last administered on 01/24/21at 12:39; Start 01/24/21 at 12:00 Lisinopril (Prinivil) 20 mg DAILY PO Last administered on 01/25/21at 08:34; Start 01/24/21 at 09:00 Atorvastatin Calcium (Lipitor) 40 mg DAILY PO Last administered on 01/25/21at 09:00; Start 01/24/21 at 09:00 Amlodipine Besylate (Norvasc) 2.5 mg 1X ONCE PO Last administered on 01/23/21at 15:53; Start 01/23/21 at 15:00; Stop 01/23/21 at 15:01; Status DC Hydrochlorothiazide (Microzide) 12.5 mg DAILY PO Last administered on 01/25/21at 08:29; Start 01/24/21 at 09:00 Docusate Sodium (Colace) 100 mg DAILY PO Last administered on 01/25/21at 08:29; Start 01/23/21 at 16:00 Enoxaparin Sodium (Lovenox Per Pharmacy Prophylaxis Dosing) 1 each PRN DAILY PRN MC SEE COMMENTS; Start 01/23/21 at 17:30 Enoxaparin Sodium (Lovenox 40mg Syringe) 40 mg Q24H SQ ; Start 01/23/21 at 18:00; Stop 01/24/21 at 18:48; Status DC Simethicone (Gas-X) 80 mg PRN Q2HR PRN PO GAS / BLOATING Last administered on 01/24/21at 15:27; Start 01/24/21 at 15:15 Enoxaparin Sodium (Lovenox 40mg Syringe) 40 mg Q24H SQ Last administered on 01/24/21at 21:06; Start 01/24/21 at 20:00 Bisacodyl (Dulcolax Tab) 10 mg DAILY PO Last administered on 01/25/21at 09:56; Start 01/25/21 at 09:00 Senna/Docusate Sodium (Senna Plus) 1 tab BID PO Last administered on 01/25/21at 10:00; Start 01/25/21 at 09:00 Docusate Sodium (Enemeez) 283 mg PRN DAILY PRN IN CONSTIPATION; Start 01/25/21 at 09:00 Ibuprofen (Motrin) 800 mg TIDAC PO ; Start 01/25/21 at 11:30 Pantoprazole Sodium (Protonix) 40 mg DAILYAC PO Last administered on 01/25/21at 09:56; Start 01/25/21 at 09:30 Tizanidine HCl (Zanaflex) 4 mg Q8HRS PO Last administered on 01/25/21at 09:56; Start 01/25/21 at 09:30 Active Scripts Active Reported Lisinopril-Hctz 20-12.5 Mg Tab (Lisinopril/Hydrochlorothiazide) 1 Each Tablet 1 Tab PO DAILY Metformin Hcl 500 Mg Tablet 500 Mg PO NOON Rosuvastatin Calcium 10 Mg Tablet 10 Mg PO DAILY Vitals/I & O Vital Sign - Last 24 Hours 01/24/21 01/24/21 01/24/21 01/24/21 12:40 13:10 15:00 18:19 Temp 98.2 98.2 Pulse 72 Resp 18 B/P (MAP) 142/60 (87) Pulse Ox 94 O2 Delivery Room Air Room Air Room Air Room Air 01/24/21 01/24/21 01/24/21 01/24/21 18:49 19:00 23:00 23:16 Temp 98.9 97.9 98.9 97.9 Pulse 80 71 Resp 18 18 18 B/P (MAP) 160/52 (88) 156/71 (99) Pulse Ox 90 93 90 O2 Delivery Room Air Room Air Room Air 01/24/21 01/25/21 01/25/21 01/25/21 23:46 03:00 05:24 05:54 Temp 98.2 98.2 Pulse 76 Resp 18 18 18 18 B/P (MAP) 149/65 (93) Pulse Ox 90 90 90 90 O2 Delivery Room Air 01/25/21 01/25/21 01/25/21 07:00 08:34 11:00 Temp 98.5 98.7 98.5 98.7 Pulse 79 79 77 Resp 18 20 B/P (MAP) 169/67 (101) 169/67 166/78 (107) Pulse Ox 93 92 O2 Delivery Room Air Room Air Intake and Output 01/24/21 01/24/21 01/25/21 15:00 23:00 07:00 Intake Total 540 ml 200 ml Balance 540 ml 200 ml Justicifation of Admission Dx: Justifications for Admission: Justification of Admission Dx: Yes LINCOLN NDIAYE MD January 25, 2021 11:38
--- NOTE | 2021-01-25 12:04 | NUR ---
SW following. Discussed with RN, pt from home, room air, ada diet. PT/OT ordered. SW will continue to follow.
[2021-01-25] MEDS: IBUPROFEN 400 MG TABLET. PO SCH ×2 (12:14→17:30)
[2021-01-25] MEDS: metFORMIN 500 MG TABLET PO SCH (12:15)
--- NOTE | 2021-01-25 13:50 | CONS ---
DATE OF CONSULTATION: 01/25/2021 ATTENDING PHYSICIAN: Dr. Underwood. The patient was seen at the request of Dr. Underwood and Dr. Jarvis for rehab evaluation and also Dr. Figueroa, asking me to see. HISTORY OF PRESENT ILLNESS: This is a 70-year-old right-handed female, admitted on 01/23/2021 after she started having severe back pain interfering with her mobility after she slipped on a carpet and fell down on the stairs, hitting her back on the stairs. The patient admits to pain, radiating to right lower chest wall area. She had CT scan of the chest, thoracic and lumbar vertebrae, which revealed T8 vertebral body compression fracture with associated degenerative disk disease at T8-T9 level. The patient admits pain radiating to right lower chest wall area and ribcage. The patient also having some problems with gas. The patient with known hypertension, diabetes, chronic lower back pain. ALLERGIES: KNOWN ALLERGIC TO ACETAMINOPHEN AND CODEINE. 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 She has been independent with her mobility and self-care skills prior to present hospitalization. PHYSICAL EXAMINATION: GENERAL: Today revealed a middle-aged female. She is alert, oriented to time, place, person and circumstance and follows commands appropriately. Moves all 4 extremities voluntarily where she had 4+/5 grade muscle strength. Deep tendon reflexes are decreased overall with absent knee and ankle jerks and she had equal perception of touch and pinprick sensation bilaterally. She had tenderness to palpation over T8 spine level and also adjoining right thoracic paraspinal muscles and also rib cage. The patient had thoracolumbar back support in place and she can roll from side to side and can get up and walk with some discomfort. She walks using a roller walker. ASSESSMENT: 1. Mobility and self-care limitation in a patient with recent fall on stairs and T8 vertebral body compression fracture with associated degenerative disk disease of thoracic spine with right lumbar radiculitis. 2. Diabetes mellitus with peripheral neuropathy. 3. Obesity. 4. Hypertension. RECOMMENDATIONS: Agree with the plan for physical therapy and occupational therapy to get therapy as tolerated. Hopefully, home with home health followup or longterm care unit as she is somewhat hesitant for consideration of kyphoplasty at present time. Dr. Figueroa appreciate asking me to participate in the care of this interesting patient. I will be glad to see her for a followup with you on an as needed basis. JERICHO/LISA/MINNIE DR: JERICHO/dirk TID: [id number] MTDLing
[2021-01-25 15:00] VITALS: BP 139/55
[2021-01-25 19:00] VITALS: BP 135/52
[2021-01-25] MEDS: ENOXAPARIN 40 MG/0.4 ML SYRINGE. SQ SCH (20:26)
[2021-01-25 23:00] VITALS: BP 126/54
[2021-01-26 03:00] VITALS: BP 121/44
[2021-01-26] MEDS: oxyCODONE/APAP 5/325 1 TAB TABLET PO PRN ×4 (03:07→20:47)
[2021-01-26] MEDS: tiZANidine 4 MG TABLET. PO SCH ×3 (06:36→20:41)
[2021-01-26] MEDS: PANTOPRAZOLE 40 MG TABLET.DR. PO SCH (06:36)
[2021-01-26 07:00] VITALS: BP 157/107
--- NOTE | 2021-01-26 08:44 | PDOC ---
PROGRESS NOTES Date of Service DATE: 01/26/21 TIME: 08:34 Subjective Subjective She admits continued pain right lower rib cage area and she admits that pain is worse than back pain and wants to make sure that she did not broke her ribs. She also wants to talk to interventional radiologist about kyphoplasty. Objective Objective Vital Signs Date Time Temp Pulse Resp B/P (MAP) Pulse Ox O2 Delivery O2 Flow Rate FiO2 01/26/21 07:15 Room Air 01/26/21 03:00 98.4 60 18 121/44 (69) 90 98.4 Intake and Output 01/26/21 07:00 Intake Total 50 ml Balance 50 ml Intake Oral 50 ml # Voids 5 Physical Exam Physical Exam She is alert,supine in bed and had TLSO in place and she is getting up with brace on and feels that she is having difficulty to get up and move and feels uncomfortable to go home now. She continues with tenderness to palpation over mid thoracic spine and adjoining paraspinal muscles and right lower rib cage area. Assessment Assessment Problems Medical Problems: (1) Compression fracture of T8 vertebra Status: Acute Plan Plan of Care To proceed with MRI scan of thoracic spine to rule out HNP causing right thoracic radiculitis and to obtain rib cage x-rays and to ask IR to see her for consideration of T8 kyphoplasty and to start her her medrol dose pack and to SNF when medically stable and to consider consulting Dr. Gifford for consideration of thoracic epidural steroid injections to help ease radicular pain. Comment Review of Relevant I have reviewed the following items felisha (where applicable) has been applied. Labs Laboratory Tests Test 01/24/21 14:45 01/24/21 20:05 01/25/21 06:10 01/25/21 07:02 White Blood Count 5.6 x10^3/uL (4.0-11.0) Red Blood Count 4.81 x10^6/uL (3.50-5.40) Hemoglobin 12.4 g/dL (12.0-15.5) Hematocrit 37.9 % (36.0-47.0) Mean Corpuscular Volume 79 fL (79-100) Mean Corpuscular Hemoglobin 26 pg (25-35) Mean Corpuscular Hemoglobin Concent 33 g/dL (31-37) Red Cell Distribution Width 14.2 % (11.5-14.5) Platelet Count 197 x10^3/uL (140-400) Neutrophils (%) (Auto) 59 % (31-73) Lymphocytes (%) (Auto) 28 % (24-48) Monocytes (%) (Auto) 8 % (0-9) Eosinophils (%) (Auto) 5 % (0-3) Basophils (%) (Auto) 1 % (0-3) Neutrophils # (Auto) 3.3 x10^3/uL (1.8-7.7) Lymphocytes # (Auto) 1.6 x10^3/uL (1.0-4.8) Monocytes # (Auto) 0.5 x10^3/uL (0.0-1.1) Eosinophils # (Auto) 0.3 x10^3/uL (0.0-0.7) Basophils # (Auto) 0.0 x10^3/uL (0.0-0.2) Prothrombin Time 12.5 SEC (11.7-14.0) Prothromb Time International Ratio 1.0 (0.8-1.1) Sodium Level 139 mmol/L (136-145) Potassium Level 3.2 mmol/L (3.5-5.1) Chloride Level 99 mmol/L (98-107) Carbon Dioxide Level 31 mmol/L (21-32) Anion Gap 9 (6-14) Blood Urea Nitrogen 9 mg/dL (7-20) Creatinine 0.7 mg/dL (0.6-1.0) 0.5 mg/dL (0.6-1.0) Estimated GFR (Cockcroft-Gault) 100.4 148.0 BUN/Creatinine Ratio 13 (6-20) Glucose Level 132 mg/dL (70-99) Calcium Level 8.8 mg/dL (8.5-10.1) Total Bilirubin 0.5 mg/dL (0.2-1.0) Aspartate Amino Transf (AST/SGOT) 14 U/L (15-37) Alanine Aminotransferase (ALT/SGPT) 22 U/L (14-59) Alkaline Phosphatase 100 U/L (46-116) Total Protein 6.8 g/dL (6.4-8.2) Albumin 3.5 g/dL (3.4-5.0) Albumin/Globulin Ratio 1.1 (1.0-1.7) Glucose (Fingerstick) 172 mg/dL (70-99) 150 mg/dL (70-99) Test 01/25/21 11:26 01/25/21 16:16 01/25/21 23:27 01/26/21 08:04 Glucose (Fingerstick) 144 mg/dL (70-99) 115 mg/dL (70-99) 189 mg/dL (70-99) 142 mg/dL (70-99) Laboratory Tests Test 01/25/21 11:26 01/25/21 16:16 01/25/21 23:27 01/26/21 08:04 Glucose (Fingerstick) 144 mg/dL (70-99) 115 mg/dL (70-99) 189 mg/dL (70-99) 142 mg/dL (70-99) Medications Current Medications Acetaminophen/ Hydrocodone Bitart (Lortab 5/325) 2 tab 1X ONCE PO Last administered on 01/23/21at 10:49; Start 01/23/21 at 10:45; Stop 01/23/21 at 10:47; Status DC Acetaminophen/ Hydrocodone Bitart (Lortab 5/325) 1 tab STK-MED ONCE .ROUTE ; Start 01/23/21 at 10:47; Stop 01/23/21 at 10:47; Status DC Ondansetron HCl (Zofran) 4 mg PRN Q8HRS PRN IV NAUSEA/VOMITING; Start 01/23/21 at 12:00; Stop 01/24/21 at 11:59; Status DC Morphine Sulfate (Morphine Sulfate) 2 mg PRN Q2HR PRN IV PAIN Last administered on 01/24/21at 01:47; Start 01/23/21 at 12:00; Stop 01/24/21 at 11:59; Status DC Oxycodone/ Acetaminophen (Percocet 5/325) 1 tab PRN Q4HRS PRN PO PAIN Last administered on 01/26/21at 07:11; Start 01/23/21 at 15:00 Polyethylene Glycol (miraLAX PACKET) 17 gm PRN DAILY PRN PO CONSTIPATION Last administered on 01/25/21at 22:48; Start 01/23/21 at 15:00 Metformin HCl (Glucophage) 500 mg NOON PO Last administered on 01/25/21at 12:15; Start 01/24/21 at 12:00 Lisinopril (Prinivil) 20 mg DAILY PO Last administered on 01/25/21 08:34; Start 01/24/21 at 09:00 Atorvastatin Calcium (Lipitor) 40 mg DAILY PO Last administered on 01/25/21 09:00; Start 01/24/21 at 09:00 Amlodipine Besylate (Norvasc) 2.5 mg 1X ONCE PO Last administered on 01/23/21 15:53; Start 01/23/21 at 15:00; Stop 01/23/21 at 15:01; Status DC Hydrochlorothiazide (Microzide) 12.5 mg DAILY PO Last administered on 01/25/21 08:29; Start 01/24/21 at 09:00 Docusate Sodium (Colace) 100 mg DAILY PO Last administered on 01/25/21at 08:29; Start 01/23/21 at 16:00 Enoxaparin Sodium (Lovenox Per Pharmacy Prophylaxis Dosing) 1 each PRN DAILY PRN MC SEE COMMENTS; Start 01/23/21 at 17:30 Enoxaparin Sodium (Lovenox 40mg Syringe) 40 mg Q24H SQ ; Start 01/23/21 at 18:00; Stop 01/24/21 at 18:48; Status DC Simethicone (Gas-X) 80 mg PRN Q2HR PRN PO GAS / BLOATING Last administered on at 15:27; Start 01/24/21 at 15:15 Enoxaparin Sodium (Lovenox 40mg Syringe) 40 mg Q24H SQ Last administered on 01/25/21 20:26; Start 01/24/21 at 20:00 Bisacodyl (Dulcolax Tab) 10 mg DAILY PO Last administered on 01/25/21 09:56; Start 01/25/21 at 09:00 Senna/Docusate Sodium (Senna Plus) 1 tab BID PO Last administered on 01/25/21 20:25; Start 01/25/21 at 09:00 Docusate Sodium (Enemeez) 283 mg PRN DAILY PRN [place] CONSTIPATION; Start 01/25/21 at 09:00 Ibuprofen (Motrin) 800 mg TIDAC PO Last administered on 5/3/21at 17:30; Start 01/25/21 at 11:30 Pantoprazole Sodium (Protonix) 40 mg DAILYAC PO Last administered on 01/26/21at 06:36; Start 01/25/21 at 09:30 Tizanidine HCl (Zanaflex) 4 mg Q8HRS PO Last administered on 01/26/21at 06:36; Start 01/25/21 at 09:30 Active Scripts Active Reported Lisinopril-Hctz 20-12.5 Mg Tab (Lisinopril/Hydrochlorothiazide) 1 Each Tablet 1 Tab PO DAILY Metformin Hcl 500 Mg Tablet 500 Mg PO NOON Rosuvastatin Calcium 10 Mg Tablet 10 Mg PO DAILY Vitals/I & O Vital Sign - Last 24 Hours 01/25/21 01/25/21 01/25/21 01/25/21 11:00 15:00 19:00 20:00 Temp 98.7 98.1 98.5 98.7 98.1 98.5 Pulse 77 72 62 Resp 20 18 18 B/P (MAP) 166/78 (107) 139/55 (83) 135/52 (79) Pulse Ox 92 94 94 O2 Delivery Room Air Room Air Room Air Room Air 01/25/21 01/25/21 01/25/21 01/26/21 20:29 21:00 23:00 03:00 Temp 98.3 98.4 98.3 98.4 Pulse 61 60 Resp 18 18 B/P (MAP) 126/54 (78) 121/44 (69) Pulse Ox 94 90 O2 Delivery Room Air Room Air Room Air Room Air 01/26/21 01/26/21 01/26/21 01/26/21 03:07 03:52 07:11 07:15 O2 Delivery Room Air Room Air Room Air Room Air Intake and Output 01/25/21 01/25/21 01/26/21 15:00 23:00 07:00 Intake Total 50 ml Balance 50 ml Justifications for Admission Other Justification RAKAN SALGUERO MD January 26, 2021 08:44
[2021-01-26] MEDS: BISACODYL 5 MG TABLET.DR. PO SCH (08:57)
[2021-01-26] MEDS: DOCUSATE SODIUM 100 MG CAPSULE. PO SCH (08:57)
[2021-01-26] MEDS: SENNOSIDES/DOCUSATE 8.6/50MG TABLET. PO SCH ×2 (08:57→20:41)
[2021-01-26] MEDS: ATORVASTATIN CALCIUM 40 MG TABLET. PO SCH (08:57)
[2021-01-26] MEDS: LISINOPRIL 20 MG TABLET PO SCH (08:57)
[2021-01-26] MEDS: hydroCHLOROthiazide 12.5 MG CAPSULE PO SCH (08:57)
[2021-01-26] MEDS: methylPREDNISolone 4 MG TABLET. PO SCH ×4 (09:00→20:41)
--- NOTE | 2021-01-26 10:09 | PDOC ---
PROGRESS NOTES Date of Service: DATE: 01/26/21 TIME: 10:08 Chief Complaint Chief Complaint VTE Prophylaxis Ordered VTE Prophylaxis Devices: No VTE Pharmacological Prophylaxi: Yes Assessment/Plan Assessment/Plan fall, back pain acute T8 fracture, seen by NS, will need back brace to get up, try PT and OT after marked narrowing of the right T8-T9 neuroforamen. mildly comminuted fracture of the T8 vertebral body with mild to moderate loss of stature anteriorly and centrally to approximately 65 percent and wedge-shaped deformity. Fracture lines are seen throughout the vertebral body although there is no fracture lines in the pedicles. no retropulsion. obese, BMI 31 htn dm2, metformin plan admit for acute intractable back pain, not-ambulatory until brace constipation risk, 2 meds Neurosurgery consult fam hx DVT, lovenox brace ordered, bedrest until brace available Consult Dr. Mcguire d/w rn Justifications for Admission Justifications for Admission Other Justification History of Present Illness History of Present Illness Source Source: Chart review, Patient History of Present Illness History of Present Illness Ms. bland, is a 70 year old female who is admitted for acute back pain after a fall. She was walking down stair, slipped on the carpet step, hit her back on the step. did not lose consciousness, and now has back pain, better with PO meds, will need soem more soon. she had questions about when she could get up or to shower. No head or neck injury. No pelvic pain, no extremity pain. Past Medical History Cardiovascular: HTN Musculoskeletal: low back pain Rheumatologic: No pertinent hx Endocrine: Diabetes Past Surgical History Past Surgical History: No pertinent history Family History Family History: Other (DVT) Social History Smoke: No ALCOHOL: none Drugs: None Current Problem List Problem List Problems Medical Problems: (1) Compression fracture of T8 vertebra Status: Acute Current Medications Current Medications Current Medications Acetaminophen/ Hydrocodone Bitart (Lortab 5/325) 2 tab 1X ONCE PO Last administered on 01/23/21at 10:49; Start 01/23/21 at 10:45; Stop 01/23/21 at 10:47; Status DC Acetaminophen/ Hydrocodone Bitart (Lortab 5/325) 1 tab STK-MED ONCE .ROUTE ; Start 01/23/21 at 10:47; Stop 01/23/21 at 10:47; Status DC Ondansetron HCl (Zofran) 4 mg PRN Q8HRS PRN IV NAUSEA/VOMITING; Start 01/23/21 at 12:00; Stop 01/24/21 at 11:59 Morphine Sulfate (Morphine Sulfate) 2 mg PRN Q2HR PRN IV PAIN; Start 01/23/21 at 12:00; Stop 01/24/21 at 11:59 Oxycodone/ Acetaminophen (Percocet 5/325) 1 tab PRN Q4HRS PRN PO PAIN Last administered on 01/23/21at 15:57; Start 01/23/21 at 15:00 Polyethylene Glycol (miraLAX PACKET) 17 gm PRN DAILY PRN PO CONSTIPATION; Start 01/23/21 at 15:00 Metformin HCl (Glucophage) 500 mg NOON PO ; Start 01/24/21 at 12:00 Lisinopril (Prinivil) 20 mg DAILY PO ; Start 01/24/21 at 09:00 Atorvastatin Calcium (Lipitor) 40 mg DAILY PO ; Start 01/24/21 at 09:00 Amlodipine Besylate (Norvasc) 2.5 mg 1X ONCE PO Last administered on 01/23/21at 15:53; Start 01/23/21 at 15:00; Stop 01/23/21 at 15:01; Status DC Hydrochlorothiazide (Microzide) 12.5 mg DAILY PO ; Start 01/24/21 at 09:00 Docusate Sodium (Colace) 100 mg DAILY PO ; Start 01/23/21 at 16:00 Active Scripts Active Reported Lisinopril-Hctz 20-12.5 Mg Tab (Lisinopril/Hydrochlorothiazide) 1 Each Tablet 1 Tab PO DAILY Metformin Hcl 500 Mg Tablet 500 Mg PO NOON Rosuvastatin Calcium 10 Mg Tablet 10 Mg PO DAILY Allergies Allergies: Coded Allergies: acetaminophen (Verified Adverse Reaction, Unknown, 01/23/21) dizziness codeine (Verified Adverse Reaction, Unknown, 01/23/21) dizziness ROS General: No: Chills, Night Sweats, Fatigue, Malaise, Appetite, Other PSYCHOLOGICAL ROS: No: Anxiety, Behavioral Disorder, Concentration difficultie, Decreased libido, Depression, Disorientation, Hallucinations, Hostility, Irritablity, Memory difficulties, Mood Swings, Obsessive thoughts, Physical abuse, Sexual abuse, Sleep disturbances, Suicidal ideation, Other Eyes: No Blurry vision, No Decreased vision, No Double vision, No Dry eyes, No Excessive tearing, No Eye Pain, No Itchy Eyes, No Loss of vision, No Photophobi a, No Scotomata, No Uses contacts, No Uses glasses, No Other HEENT: No: Heacaches, Visual Changes, Hearing change, Nasal congestion, Nasal discharge, Oral lesions, Sinus pain, Sore Throat, Epistaxis, Sneezing, Snoring, Tinnitus, Vertigo, Vocal changes, Other Respiratory: No: Cough, Hemoptysis, Orthopnea, Pleuritic Pain, Shortness of breath, SOB with excertion, Sputum Changes, Stridor, Tachypnea, Wheezing, Other Cardiovascular: No Chest Pain, No Palpitations, No Orthopnea, No Paroxysmal Noc. Dyspnea, No Edema, No Lt Headedness, No Other Gastrointestinal: Yes Constipation (at times); No Nausea, No Vomiting, No Abdominal Pain, No Diarrhea, No Melena, No Hematochezia, No Other Genitourinary: No Dysuria, No Frequency, No Incontinence, No Hematuria, No Retention, No Discharge, No Urgency, No Pain, No Flank Pain, No Other, No , No , No , No , No , No , No Musculoskeletal: Yes Joint Pain, Yes Joint Stiffness Neurological: Yes Gait Disturbance; No Behavorial Changes, No Bowel/Bladder ControlChng, No Confusion, No Dizziness, No Headaches, No Impaired Coord/balance, No Memory Loss, No Numbness/Tingling, No Seizures, No Speech Problems, No Tremors, No Visual Changes, No Weakness, No Other Skin: No Dry Skin, No Eczema, No Hair Changes, No Lumps, No Mole Changes, No Mottling, No Nail Changes, No Pruritus, No Rash, No Skin Lesion Changes, No Other, No Acne 5-04 pain 04/02 to snf rehab soon D/W RN D/W DR MCGUIRE acute T8 fracture, seen by NS, will need back brace to get up, try PT and OT after marked narrowing of the right T8-T9 neuroforamen. mildly comminuted fracture of the T8 vertebral body with mild to moderate loss of stature anteriorly and centrally to approximately 65 percent and wedge-shaped deformity. Fracture lines are seen throughout the vertebral body although there is no fracture lines in the pedicles. no retropulsion. MRI L/S TODAY 01-26 pain 04/02 may need snf rehab co right rib pain D/W RN D/W DR MCGUIRE acute T8 fracture, seen by NS, will need back brace to get up, try PT and OT after marked narrowing of the right T8-T9 neuroforamen. mildly comminuted fracture of the T8 vertebral body with mild to moderate loss of stature anteriorly and centrally to approximately 65 percent and wedge-shaped deformity. Fracture lines are seen throughout the vertebral body although there is no fracture lines in the pedicles. no retropulsion. 37 MIN PT EXAM, CHART review, > 50% of time spent with exam, chart review, pt care coordination 01-25 pain 04/02 may need snf rehab D/W RN D/W DR MCGUIRE acute T8 fracture, seen by NS, will need back brace to get up, try PT and OT after marked narrowing of the right T8-T9 neuroforamen. mildly comminuted fracture of the T8 vertebral body with mild to moderate loss of stature anteriorly and centrally to approximately 65 percent and wedge-shaped deformity. Fracture lines are seen throughout the vertebral body although there is no fracture lines in the pedicles. no retropulsion. Vitals Vitals Vital Signs Date Time Temp Pulse Resp B/P (MAP) Pulse Ox O2 Delivery O2 Flow Rate FiO2 01/26/21 08:57 61 157/107 01/26/21 08:56 Room Air 01/26/21 07:00 98.4 18 94 98.4 Physical Exam General: Alert, Oriented X3, Cooperative, mild distress Lungs: Clear Abdomen: Normal bowel sounds, Soft Extremities: No clubbing, No cyanosis, No edema, Normal pulses Skin: No breakdown Labs LABS Laboratory Tests Test 01/25/21 11:26 01/25/21 16:16 01/25/21 23:27 01/26/21 08:04 Glucose (Fingerstick) 144 mg/dL (70-99) 115 mg/dL (70-99) 189 mg/dL (70-99) 142 mg/dL (70-99) Assessment and Plan Assessmemt and Plan Problems Medical Problems: (1) Compression fracture of T8 vertebra Status: Acute Comment Review of Relevant I have reviewed the following items felisha (where applicable) has been applied. Labs Laboratory Tests Test 01/24/21 14:45 01/24/21 20:05 01/25/21 06:10 01/25/21 07:02 White Blood Count 5.6 x10^3/uL (4.0-11.0) Red Blood Count 4.81 x10^6/uL (3.50-5.40) Hemoglobin 12.4 g/dL (12.0-15.5) Hematocrit 37.9 % (36.0-47.0) Mean Corpuscular Volume 79 fL (79-100) Mean Corpuscular Hemoglobin 26 pg (25-35) Mean Corpuscular Hemoglobin Concent 33 g/dL (31-37) Red Cell Distribution Width 14.2 % (11.5-14.5) Platelet Count 197 x10^3/uL (140-400) Neutrophils (%) (Auto) 59 % (31-73) Lymphocytes (%) (Auto) 28 % (24-48) Monocytes (%) (Auto) 8 % (0-9) Eosinophils (%) (Auto) 5 % (0-3) Basophils (%) (Auto) 1 % (0-3) Neutrophils # (Auto) 3.3 x10^3/uL (1.8-7.7) Lymphocytes # (Auto) 1.6 x10^3/uL (1.0-4.8) Monocytes # (Auto) 0.5 x10^3/uL (0.0-1.1) Eosinophils # (Auto) 0.3 x10^3/uL (0.0-0.7) Basophils # (Auto) 0.0 x10^3/uL (0.0-0.2) Prothrombin Time 12.5 SEC (11.7-14.0) Prothromb Time International Ratio 1.0 (0.8-1.1) Sodium Level 139 mmol/L (136-145) Potassium Level 3.2 mmol/L (3.5-5.1) Chloride Level 99 mmol/L (98-107) Carbon Dioxide Level 31 mmol/L (21-32) Anion Gap 9 (6-14) Blood Urea Nitrogen 9 mg/dL (7-20) Creatinine 0.7 mg/dL (0.6-1.0) 0.5 mg/dL (0.6-1.0) Estimated GFR (Cockcroft-Gault) 100.4 148.0 BUN/Creatinine Ratio 13 (6-20) Glucose Level 132 mg/dL (70-99) Calcium Level 8.8 mg/dL (8.5-10.1) Total Bilirubin 0.5 mg/dL (0.2-1.0) Aspartate Amino Transf (AST/SGOT) 14 U/L (15-37) Alanine Aminotransferase (ALT/SGPT) 22 U/L (14-59) Alkaline Phosphatase 100 U/L (46-116) Total Protein 6.8 g/dL (6.4-8.2) Albumin 3.5 g/dL (3.4-5.0) Albumin/Globulin Ratio 1.1 (1.0-1.7) Glucose (Fingerstick) 172 mg/dL (70-99) 150 mg/dL (70-99) Test 01/25/21 11:26 01/25/21 16:16 01/25/21 23:27 01/26/21 08:04 Glucose (Fingerstick) 144 mg/dL (70-99) 115 mg/dL (70-99) 189 mg/dL (70-99) 142 mg/dL (70-99) Laboratory Tests Test 01/25/21 11:26 01/25/21 16:16 01/25/21 23:27 01/26/21 08:04 Glucose (Fingerstick) 144 mg/dL (70-99) 115 mg/dL (70-99) 189 mg/dL (70-99) 142 mg/dL (70-99) Medications Current Medications Acetaminophen/ Hydrocodone Bitart (Lortab 5/325) 2 tab 1X ONCE PO Last administered on 01/23/21at 10:49; Start 01/23/21 at 10:45; Stop 01/23/21 at 10:47; Status DC Acetaminophen/ Hydrocodone Bitart (Lortab 5/325) 1 tab STK-MED ONCE .ROUTE ; Start 01/23/21 at 10:47; Stop 01/23/21 at 10:47; Status DC Ondansetron HCl (Zofran) 4 mg PRN Q8HRS PRN IV NAUSEA/VOMITING; Start 01/23/21 at 12:00; Stop 01/24/21 at 11:59; Status DC Morphine Sulfate (Morphine Sulfate) 2 mg PRN Q2HR PRN IV PAIN Last administered on 01/24/21at 01:47; Start 01/23/21 at 12:00; Stop 01/24/21 at 11:59; Status DC Oxycodone/ Acetaminophen (Percocet 5/325) 1 tab PRN Q4HRS PRN PO PAIN Last administered on 01/26/21at 07:11; Start 01/23/21 at 15:00 Polyethylene Glycol (miraLAX PACKET) 17 gm PRN DAILY PRN PO CONSTIPATION Last administered on 01/25/21at 22:48; Start 01/23/21 at 15:00 Metformin HCl (Glucophage) 500 mg NOON PO Last administered on 01/25/21at 12:15; Start 01/24/21 at 12:00 Lisinopril (Prinivil) 20 mg DAILY PO Last administered on 01/26/21at 08:57; Start 01/24/21 at 09:00 Atorvastatin Calcium (Lipitor) 40 mg DAILY PO Last administered on 01/26/21at 08:57; Start 01/24/21 at 09:00 Amlodipine Besylate (Norvasc) 2.5 mg 1X ONCE PO Last administered on 01/23/21at 15:53; Start 01/23/21 at 15:00; Stop 01/23/21 at 15:01; Status DC Hydrochlorothiazide (Microzide) 12.5 mg DAILY PO Last administered on 01/26/21at 08:57; Start 01/24/21 at 09:00 Docusate Sodium (Colace) 100 mg DAILY PO Last administered on 01/26/21at 08:57; Start 01/23/21 at 16:00 Enoxaparin Sodium (Lovenox Per Pharmacy Prophylaxis Dosing) 1 each PRN DAILY PRN MC SEE COMMENTS; Start 01/23/21 at 17:30 Enoxaparin Sodium (Lovenox 40mg Syringe) 40 mg Q24H SQ ; Start 01/23/21 at 18:00; Stop 01/24/21 at 18:48; Status DC Simethicone (Gas-X) 80 mg PRN Q2HR PRN PO GAS / BLOATING Last administered on 01/24/21at 15:27; Start 01/24/21 at 15:15 Enoxaparin Sodium (Lovenox 40mg Syringe) 40 mg Q24H SQ Last administered on 01/25/21at 20:26; Start 01/24/21 at 20:00 Bisacodyl (Dulcolax Tab) 10 mg DAILY PO Last administered on 01/26/21at 08:57; Start 01/25/21 at 09:00 Senna/Docusate Sodium (Senna Plus) 1 tab BID PO Last administered on 01/26/21at 08:57; Start 01/25/21 at 09:00 Docusate Sodium (Enemeez) 283 mg PRN DAILY PRN [place] CONSTIPATION; Start 01/25/21 at 09:00 Ibuprofen (Motrin) 800 mg TIDAC PO Last administered on 01/25/21at 17:30; Start 01/25/21 at 11:30; Stop 01/26/21 at 08:46; Status DC Pantoprazole Sodium (Protonix) 40 mg DAILYAC PO Last administered on 01/26/21at 06:36; Start 01/25/21 at 09:30 Tizanidine HCl (Zanaflex) 4 mg Q8HRS PO Last administered on 01/26/21at 06:36; Start 01/25/21 at 09:30 Methylprednisolone (Medrol) 8 mg BID PO Last administered on 01/26/21at 09:00; Start 01/26/21 at 09:00; Stop 01/26/21 at 21:01 Methylprednisolone (Medrol) 4 mg BIDPCLD PO ; Start 01/26/21 at 12:30; Stop at 17:31 Methylprednisolone (Medrol) 4 mg TIDPC PO ; Start 01/27/21 at 08:30; Stop 01/27/21 at 17:31 Methylprednisolone (Medrol) 8 mg QHS PO ; Start 01/27/21 at 21:00; Stop 01/27/21 at 21:01 Methylprednisolone (Medrol) 4 mg QIDAFTMEAL PO ; Start 01/28/21 at 09:00; Stop 01/28/21 at 21:01 Methylprednisolone (Medrol) 4 mg TID PO ; Start 01/29/21 at 09:00; Stop 01/29/21 at 21:01 Methylprednisolone (Medrol) 4 mg BID PO ; Start 01/30/21 at 09:00; Stop 01/30/21 at 21:01 Methylprednisolone (Medrol) 4 mg DAILY PO ; Start 01/31/21 at 09:00; Stop 01/31/21 at 09:01 Active Scripts Active Reported Lisinopril-Hctz 20-12.5 Mg Tab (Lisinopril/Hydrochlorothiazide) 1 Each Tablet 1 Tab PO DAILY Metformin Hcl 500 Mg Tablet 500 Mg PO NOON Rosuvastatin Calcium 10 Mg Tablet 10 Mg PO DAILY Vitals/I & O Vital Sign - Last 24 Hours 01/25/21 01/25/21 01/25/21 01/25/21 11:00 15:00 19:00 20:00 Temp 98.7 98.1 98.5 98.7 98.1 98.5 Pulse 77 72 62 Resp 20 18 18 B/P (MAP) 166/78 (107) 139/55 (83) 135/52 (79) Pulse Ox 92 94 94 O2 Delivery Room Air Room Air Room Air Room Air 01/25/21 01/25/21 01/25/21 01/26/21 20:29 21:00 23:00 03:00 Temp 98.3 98.4 98.3 98.4 Pulse 61 60 Resp 18 18 B/P (MAP) 126/54 (78) 121/44 (69) Pulse Ox 94 90 O2 Delivery Room Air Room Air Room Air Room Air 01/26/21 01/26/21 01/26/21 01/26/21 03:07 03:52 07:00 07:11 Temp 98.4 98.4 Pulse 61 Resp 18 B/P (MAP) 157/107 (124) Pulse Ox 94 O2 Delivery Room Air Room Air Room Air Room Air 01/26/21 01/26/21 01/26/21 07:15 08:56 08:57 Pulse 61 B/P (MAP) 157/107 O2 Delivery Room Air Room Air Intake and Output 01/25/21 01/25/21 01/26/21 15:00 23:00 07:00 Intake Total 50 ml Balance 50 ml Justicifation of Admission Dx: Justifications for Admission: Justification of Admission Dx: Yes LINCOLN NDIAYE MD January 26, 2021 10:08
[2021-01-26 11:00] VITALS: BP 140/54
--- NOTE | 2021-01-26 12:04 | NUR ---
SW following. Discussed with RN, PT/OT recommending SNF. PITA met with pt, pt agreeable and would like referral sent to [facility]. PITA phoned and faxed referral to [facility], awaiting acceptance decision. Message left for RN RE need for COVID and determination on when pt might be ready for discharge. PITA will continue to follow. Addendum: 01/26/21 at 1625 by DHRUV LEMA Pt accepted at [facility]. Pt deciding on whether to do the kyphoplasty. PITA will have [facility] submit for insurance once decision made.
[2021-01-26] MEDS: metFORMIN 500 MG TABLET PO SCH (12:26)
--- NOTE | 2021-01-26 14:55 | RAD ---
EXAMINATION: XR RIBS 2 VIEWS RT CLINICAL HISTORY: Right lower rib cage pain, to rule out any fracture ribs at pt.'s request TECHNIQUE: XR RIBS 2 VIEWS RT COMPARISON: None FINDINGS/ IMPRESSION: No evidence of acute right rib fracture or related sequelae including pneumothorax or pleural effusio n. Thoracolumbar degenerative changes, incompletely evaluated. Electronically signed by: Steve Bowen DO (01/26/2021 2:52 PM) [facility]
[2021-01-26 15:00] VITALS: BP 144/58
--- NOTE | 2021-01-26 16:47 | RAD ---
MRI THORACIC SPINE 01/26/2021 12:59 PM INDICATION: Right lower thoracic radiculitis. COMPARISON: CT thoracic spine 01/23/2021 TECHNIQUE: Multiplanar, multisequence MR imaging of the thoracic spine was performed without intrave nous contrast. FINDINGS: There is a superior endplate compression fracture with diffuse marrow edema involving T8. Edema exten ds into the left T8 pedicle fracture extends through the anterior cortex. There is no significant ret ropulsion identified. There is no compressive epidural hematoma. However, there is subtle loss of the normal fat along the right ventral epidural space at T8-T9 extending inferiorly to the T10 vertebral level suggestive of a noncompressive ventral epidural hematoma. There is mild exaggerated kyphosis. Moderate disc height loss at T10-T11 with disc desiccation and posterior disc osteophyte complex. The re is mild facet arthropathy. Mild left neuroforaminal stenosis. No significant spinal canal stenosis . Thoracic spinal cord signal intensity is normal in all sequences. No cord compression is identified . There is mild prevertebral edema at T7-T8 and T8-T9. Thoracic aorta is normal in caliber. No signal alteration of the thoracic aorta. Moderate size hiatal hernia. Small right pleural effusion. Trace l eft pleural effusion. IMPRESSION: Superior and inferior T8 compression fracture without significant retropulsion with associated marrow edema suggests acute to subacute finding. There is edema extending into the left pedicle at T8. Ther e may be a subtle noncompressive epidural hematoma along the right ventral epidural space from T8 thr ough T10. There is a posterior disc osteophyte complex at T10-T11 with mild left neuroforaminal stenosis. Electronically signed by: Elizabeth Schmid MD (01/26/2021 4:45 PM) [id number]
[2021-01-26 19:00] VITALS: BP 168/69
[2021-01-26] MEDS: ENOXAPARIN 40 MG/0.4 ML SYRINGE. SQ SCH (20:56)
[2021-01-26 23:00] VITALS: BP_SYST 114; BP_SYST 168; BP_DIAS 46; BP_DIAS 69
[2021-01-27 03:00] VITALS: BP 152/70
[2021-01-27] MEDS: oxyCODONE/APAP 5/325 1 TAB TABLET PO PRN ×2 (03:12→12:07)
[2021-01-27] MEDS: PANTOPRAZOLE 40 MG TABLET.DR. PO SCH (06:22)
[2021-01-27] MEDS: tiZANidine 4 MG TABLET. PO SCH ×2 (06:23→14:38)
[2021-01-27 07:04] VITALS: BP 144/55
[2021-01-27] MEDS: hydroCHLOROthiazide 12.5 MG CAPSULE PO SCH (08:30)
[2021-01-27] MEDS ORDERED: methylPREDNISolone 4 MG TABLET. PO SCH ×2 (08:30→21:00)
[2021-01-27] MEDS: ATORVASTATIN CALCIUM 40 MG TABLET. PO SCH (08:30)
[2021-01-27] MEDS: SENNOSIDES/DOCUSATE 8.6/50MG TABLET. PO SCH (08:30)
[2021-01-27] MEDS: BISACODYL 5 MG TABLET.DR. PO SCH (08:30)
[2021-01-27] MEDS: DOCUSATE SODIUM 100 MG CAPSULE. PO SCH (08:30)
[2021-01-27] MEDS: LISINOPRIL 20 MG TABLET PO SCH (08:31)
--- NOTE | 2021-01-27 08:55 | PDOC ---
PROGRESS NOTES Date of Service: DATE: 01/27/21 TIME: 08:55 Chief Complaint Chief Complaint VTE Prophylaxis Ordered VTE Prophylaxis Devices: No VTE Pharmacological Prophylaxi: Yes Assessment/Plan Assessment/Plan fall, acute back pain acute T8 fracture, seen by NS, will need back brace to get up, try PT and OT after marked narrowing of the right T8-T9 neuroforamen. mildly comminuted fracture of the T8 vertebral body with mild to moderate loss of stature anteriorly and centrally to approximately 65 percent and wedge-shaped deformity. Fracture lines are seen throughout the vertebral body although there is no fracture lines in the pedicles. no retropulsion. obese, BMI 31 htn dm2, metformin subtle noncompressive epidural hematoma along the right ventral epidural space from T8 through T10. plan admit for acute intractable back pain, not-ambulatory until brace constipation risk, 2 meds Neurosurgery consult fam hx DVT, lovenox brace ordered, bedrest until brace available Consult Dr. Salguero d/c lovenox d/c to snf 01-27 d/w rn Justifications for Admission Justifications for Admission Other Justification History of Present Illness History of Present Illness Source Source: Chart review, Patient History of Present Illness History of Present Illness Ms. bland, is a 70 year old female who is admitted for acute back pain after a fall. She was walking down stair, slipped on the carpet step, hit her back on the step. did not lose consciousness, and now has back pain, better with PO meds, will need soem more soon. she had questions about when she could get up or to shower. No head or neck injury. No pelvic pain, no extremity pain. Past Medical History Cardiovascular: HTN Musculoskeletal: low back pain Rheumatologic: No pertinent hx Endocrine: Diabetes Past Surgical History Past Surgical History: No pertinent history Family History Family History: Other (DVT) Social History Smoke: No ALCOHOL: none Drugs: None Current Problem List Problem List Problems Medical Problems: (1) Compression fracture of T8 vertebra Status: Acute Current Medications Current Medications Current Medications Acetaminophen/ Hydrocodone Bitart (Lortab 5/325) 2 tab 1X ONCE PO Last administered on 01/23/21at 10:49; Start 01/23/21 at 10:45; Stop 01/23/21 at 10:47; Status DC Acetaminophen/ Hydrocodone Bitart (Lortab 5/325) 1 tab STK-MED ONCE .ROUTE ; Start 01/23/21 at 10:47; Stop 01/23/21 at 10:47; Status DC Ondansetron HCl (Zofran) 4 mg PRN Q8HRS PRN IV NAUSEA/VOMITING; Start 01/23/21 at 12:00; Stop 01/24/21 at 11:59 Morphine Sulfate (Morphine Sulfate) 2 mg PRN Q2HR PRN IV PAIN; Start 01/23/21 at 12:00; Stop 01/24/21 at 11:59 Oxycodone/ Acetaminophen (Percocet 5/325) 1 tab PRN Q4HRS PRN PO PAIN Last administered on 01/23/21at 15:57; Start 01/23/21 at 15:00 Polyethylene Glycol (miraLAX PACKET) 17 gm PRN DAILY PRN PO CONSTIPATION; Start 01/23/21 at 15:00 Metformin HCl (Glucophage) 500 mg NOON PO ; Start 01/24/21 at 12:00 Lisinopril (Prinivil) 20 mg DAILY PO ; Start 01/24/21 at 09:00 Atorvastatin Calcium (Lipitor) 40 mg DAILY PO ; Start 01/24/21 at 09:00 Amlodipine Besylate (Norvasc) 2.5 mg 1X ONCE PO Last administered on 01/23/21at 15:53; Start 01/23/21 at 15:00; Stop 01/23/21 at 15:01; Status DC Hydrochlorothiazide (Microzide) 12.5 mg DAILY PO ; Start 01/24/21 at 09:00 Docusate Sodium (Colace) 100 mg DAILY PO ; Start 01/23/21 at 16:00 Active Scripts Active Reported Lisinopril-Hctz 20-12.5 Mg Tab (Lisinopril/Hydrochlorothiazide) 1 Each Tablet 1 Tab PO DAILY Metformin Hcl 500 Mg Tablet 500 Mg PO NOON Rosuvastatin Calcium 10 Mg Tablet 10 Mg PO DAILY Allergies Allergies: Coded Allergies: acetaminophen (Verified Adverse Reaction, Unknown, 01/23/21) dizziness codeine (Verified Adverse Reaction, Unknown, 01/23/21) dizziness ROS General: No: Chills, Night Sweats, Fatigue, Malaise, Appetite, Other PSYCHOLOGICAL ROS: No: Anxiety, Behavioral Disorder, Concentration difficultie, Decreased libido, Depression, Disorientation, Hallucinations, Hostility, Irritablity, Memory difficulties, Mood Swings, Obsessive thoughts, Physical abuse, Sexual abuse, Sleep disturbances, Suicidal ideation, Other Eyes: No Blurry vision, No Decreased vision, No Double vision, No Dry eyes, No Excessive tearing, No Eye Pain, No Itchy Eyes, No Loss of vision, No Photophobia, No Scotomata, No Uses contacts, No Uses glasses, No Other HEENT: No: Heacaches, Visual Changes, Hearing change, Nasal congestion, Nasal discharge, Oral lesions, Sinus pain, Sore Throat, Epistaxis, Sneezing, Snoring, Tinnitus, Vertigo, Vocal changes, Other Respiratory: No: Cough, Hemoptysis, Orthopnea, Pleuritic Pain, Shortness of breath, SOB with excertion, Sputum Changes, Stridor, Tachypnea, Wheezing, Other Cardiovascular: No Chest Pain, No Palpitations, No Orthopnea, No Paroxysmal Noc. Dyspnea, No Edema, No Lt Headedness, No Other Gastrointestinal: Yes Constipation (at times); No Nausea, No Vomiting, No Abdominal Pain, No Diarrhea, No Melena, No Hematochezia, No Other Genitourinary: No Dysuria, No Frequency, No Incontinence, No Hematuria, No Retention, No Discharge, No Urgency, No Pain, No Flank Pain, No Other, No , No , No , No , No , No , No Musculoskeletal: Yes Joint Pain, Yes Joint Stiffness Neurological: Yes Gait Disturbance; No Behavorial Changes, No Bowel/Bladder ControlChng, No Confusion, No Dizziness, No Headaches, No Impaired Coord/balance, No Memory Loss, No Numbness/Tingling, No Seizures, No Speech Problems, No Tremors, No Visual Changes, No Weakness, No Other Skin: No Dry Skin, No Eczema, No Hair Changes, No Lumps, No Mole Changes, No Mottling, No Nail Changes, No Pruritus, No Rash, No Skin Lesion Changes, No Other, No Acne 5-05 pain 04/02 to snf rehab D/W RN D/W DR SALGUERO acute T8 fracture, seen by NS, will need back brace to get up, try PT and OT after marked narrowing of the right T8-T9 neuroforamen. mildly comminuted fracture of the T8 vertebral body with mild to moderate loss of stature anteriorly and centrally to approximately 65 percent and wedge-shaped deformity. Fracture lines are seen throughout the vertebral body although there is no fracture lines in the pedicles. no retropulsion. MRI L/S reviewed d/c planning 34 min 01-26 pain 7/ to snf rehab soon D/W RN D/W DR SALGUERO acute T8 fracture, seen by NS, will need back brace to get up, try PT and OT after marked narrowing of the right T8-T9 neuroforamen. mildly comminuted fracture of the T8 vertebral body with mild to moderate loss of stature anteriorly and centrally to approximately 65 percent and wedge-shaped deformity. Fracture lines are seen throughout the vertebral body although there is no fracture lines in the pedicles. no retropulsion. MRI L/S TODAY 01-26 pain 7/ may need snf rehab co right rib pain D/W RN D/W DR SALGUERO acute T8 fracture, seen by NS, will need back brace to get up, try PT and OT after marked narrowing of the right T8-T9 neuroforamen. mildly comminuted fracture of the T8 vertebral body with mild to moderate loss of stature anteriorly and centrally to approximately 65 percent and wedge-shaped deformity. Fracture lines are seen throughout the vertebral body although there is no fracture lines in the pedicles. no retropulsion. 37 MIN PT EXAM, CHART review, > 50% of time spent with exam, chart review, pt care coordination 01-25 pain 7/ may need snf rehab D/W RN D/W DR SALGUERO acute T8 fracture, seen by NS, will need back brace to get up, try PT and OT after marked narrowing of the right T8-T9 neuroforamen. mildly comminuted fracture of the T8 vertebral body with mild to moderate loss of stature anteriorly and centrally to approximately 65 percent and wedge-shaped deformity. Fracture lines are seen throughout the vertebral body although there is no fracture lines in the pedicles. no retropulsion. Vitals Vitals Vital Signs Date Time Temp Pulse Resp B/P (MAP) Pulse Ox O2 Delivery O2 Flow Rate FiO2 01/27/21 08:31 67 144/55 01/27/21 07:40 Room Air 01/27/21 07:04 98.0 18 95 98.0 Physical Exam General: Alert, Oriented X3, Cooperative, No acute distress Lungs: Clear Abdomen: Normal bowel sounds, Soft Extremities: No clubbing, No cyanosis, No edema, Normal pulses Skin: No breakdown Labs LABS MRI THORACIC SPINE WO 01/26/2021 12:59 PM INDICATION: Right lower thoracic radiculitis. COMPARISON: CT thoracic spine 01/23/2021 TECHNIQUE: Multiplanar, multisequence MR imaging of the thoracic spine was performed without intravenous contrast. FINDINGS: There is a superior endplate compression fracture with diffuse marrow edema involving T8. Edema extends into the left T8 pedicle fracture extends through the anterior cortex. There is no significant retropulsion identified. There is no compressive epidural hematoma. However, there is subtle loss of the normal fat along the right ventral epidural space at T8-T9 extending inferiorly to the T10 vertebral level suggestive of a noncompressive ventral epidural hematoma. There is mild exaggerated kyphosis. Moderate disc height loss at T10-T11 with disc desiccation and posterior disc osteophyte complex. There is mild facet arthropathy. Mild left neuroforaminal stenosis. No significant spinal canal stenosis. Thoracic spinal cord signal intensity is normal in all sequences. No cord compression is identified. There is mild prevertebral edema at T7-T8 and T8-T9. Thoracic aorta is normal in caliber. No signal alteration of the thoracic aorta. Moderate size hiatal hernia. Small right pleural effusion. Trace left pleural effusion. IMPRESSION: Superior and inferior T8 compression fracture without significant retropulsion with associated marrow edema suggests acute to subacute finding. There is edema extending into the left pedicle at T8. There may be a subtle noncompressive epidural hematoma along the right ventral epidural space from T8 through T10. There is a posterior disc osteophyte complex at T10-T11 with mild left neuroforaminal stenosis. Electronically signed by: Jada Baum MD (01/26/2021 4:45 PM) [id number] DICTATED and SIGNED BY: JADA BAUM MD DATE: 01/26/21 [id number] Laboratory Tests Test 01/26/21 12:12 01/26/21 17:07 01/26/21 20:37 01/27/21 06:58 Glucose (Fingerstick) 164 mg/dL (70-99) 193 mg/dL (70-99) 150 mg/dL (70-99) 134 mg/dL (70-99) Assessment and Plan Assessmemt and Plan Problems Medical Problems: (1) Compression fracture of T8 vertebra Status: Acute Comment Review of Relevant I have reviewed the following items felisha (where applicable) has been applied. Labs Laboratory Tests Test 01/25/21 11:26 01/25/21 16:16 01/25/21 23:27 01/26/21 08:04 Glucose (Fingerstick) 144 mg/dL (70-99) 115 mg/dL (70-99) 189 mg/dL (70-99) 142 mg/dL (70-99) Test 01/26/21 12:12 01/26/21 17:07 01/26/21 20:37 01/27/21 06:58 Glucose (Fingerstick) 164 mg/dL (70-99) 193 mg/dL (70-99) 150 mg/dL (70-99) 134 mg/dL (70-99) Laboratory Tests Test 01/26/21 12:12 01/26/21 17:07 01/26/21 20:37 01/27/21 06:58 Glucose (Fingerstick) 164 mg/dL (70-99) 193 mg/dL (70-99) 150 mg/dL (70-99) 134 mg/dL (70-99) Medications Current Medications Acetaminophen/ Hydrocodone Bitart (Lortab 5/325) 2 tab 1X ONCE PO Last administered on 01/23/21at 10:49; Start 01/23/21 at 10:45; Stop 01/23/21 at 10:47; Status DC Acetaminophen/ Hydrocodone Bitart (Lortab 5/325) 1 tab STK-MED ONCE .ROUTE ; Start 01/23/21 at 10:47; Stop 01/23/21 at 10:47; Status DC Ondansetron HCl (Zofran) 4 mg PRN Q8HRS PRN IV NAUSEA/VOMITING; Start 01/23/21 at 12:00; Stop 01/24/21 at 11:59; Status DC Morphine Sulfate (Morphine Sulfate) 2 mg PRN Q2HR PRN IV PAIN Last administered on 01/24/21at 01:47; Start 01/23/21 at 12:00; Stop 01/24/21 at 11:59; Status DC Oxycodone/ Acetaminophen (Percocet 5/325) 1 tab PRN Q4HRS PRN PO PAIN Last administered on 01/27/21 03:12; Start 01/23/21 at 15:00 Polyethylene Glycol (miraLAX PACKET) 17 gm PRN DAILY PRN PO CONSTIPATION Last administered on 01/25/21at 22:48; Start 01/23/21 at 15:00 Metformin HCl (Glucophage) 500 mg NOON PO Last administered on 01/26/21 12:26; Start 01/24/21 at 12:00 Lisinopril (Prinivil) 20 mg DAILY PO Last administered on 01/27/21 08:31; Start 01/24/21 at 09:00 Atorvastatin Calcium (Lipitor) 40 mg DAILY PO Last administered on 01/27/21 08:30; Start 01/24/21 at 09:00 Amlodipine Besylate (Norvasc) 2.5 mg 1X ONCE PO Last administered on 01/23/21at 15:53; Start 01/23/21 at 15:00; Stop 01/23/21 at 15:01; Status DC Hydrochlorothiazide (Microzide) 12.5 mg DAILY PO Last administered on 01/27/21 08:30; Start 01/24/21 at 09:00 Docusate Sodium (Colace) 100 mg DAILY PO Last administered on 01/27/21 08:30; Start 01/23/21 at 16:00 Enoxaparin Sodium (Lovenox Per Pharmacy Prophylaxis Dosing) 1 each PRN DAILY PRN MC SEE COMMENTS; Start 01/23/21 at 17:30 Enoxaparin Sodium (Lovenox 40mg Syringe) 40 mg Q24H SQ ; Start 01/23/21 at 18:00; Stop 01/24/21 at 18:48; Status DC Simethicone (Gas-X) 80 mg PRN Q2HR PRN PO GAS / BLOATING Last administered on 01/24/21 15:27; Start 01/24/21 at 15:15 Enoxaparin Sodium (Lovenox 40mg Syringe) 40 mg Q24H SQ Last administered on 01/26/21 20:56; Start 01/24/21 at 20:00 Bisacodyl (Dulcolax Tab) 10 mg DAILY PO Last administered on 01/27/21 08:30; Start 01/25/21 at 09:00 Senna/Docusate Sodium (Senna Plus) 1 tab BID PO Last administered on 01/27/21at 08:30; Start 01/25/21 at 09:00 Docusate Sodium (Enemeez) 283 mg PRN DAILY PRN NM CONSTIPATION; Start 01/25/21 at 09:00 Ibuprofen (Motrin) 800 mg TIDAC PO Last administered on 01/25/21at 17:30; Start 01/25/21 at 11:30; Stop 01/26/21 at 08:46; Status DC Pantoprazole Sodium (Protonix) 40 mg DAILYAC PO Last administered on 01/27/21at 06:22; Start 01/25/21 at 09:30 Tizanidine HCl (Zanaflex) 4 mg Q8HRS PO Last administered on 01/27/21at 06:23; Start 01/25/21 at 09:30 Methylprednisolone (Medrol) 8 mg BID PO Last administered on 01/26/21at 20:41; Start 01/26/21 at 09:00; Stop 01/26/21 at 21:01; Status DC Methylprednisolone (Medrol) 4 mg BIDPCLD PO Last administered on 01/26/21at 18:08; Start 01/26/21 at 12:30; Stop 01/26/21 at 17:31; Status DC Methylprednisolone (Medrol) 4 mg TIDPC PO Last administered on 01/27/21at 08:30; Start 01/27/21 at 08:30; Stop 01/27/21 at 17:31 Methylprednisolone (Medrol) 8 mg QHS PO ; Start 01/27/21 at 21:00; Stop 01/27/21 at 21:01 Methylprednisolone (Medrol) 4 mg QIDAFTMEAL PO ; Start 01/28/21 at 09:00; Stop 01/28/21 at 21:01 Methylprednisolone (Medrol) 4 mg TID PO ; Start 01/29/21 at 09:00; Stop 01/29/21 at 21:01 Methylprednisolone (Medrol) 4 mg BID PO ; Start 01/30/21 at 09:00; Stop 01/30/21 at 21:01 Methylprednisolone (Medrol) 4 mg DAILY PO ; Start 01/31/21 at 09:00; Stop 5/9/21 at 09:01 Active Scripts Active Reported Lisinopril-Hctz 20-12.5 Mg Tab (Lisinopril/Hydrochlorothiazide) 1 Each Tablet 1 Tab PO DAILY Metformin Hcl 500 Mg Tablet 500 Mg PO NOON Rosuvastatin Calcium 10 Mg Tablet 10 Mg PO DAILY Vitals/I & O Vital Sign - Last 24 Hours 01/26/21 01/26/21 01/26/21 01/26/21 08:56 08:57 11:00 12:26 Temp 98.6 98.6 Pulse 61 95 Resp 16 B/P (MAP) 157/107 140/54 (82) Pulse Ox 95 O2 Delivery Room Air Room Air Room Air 01/26/21 01/26/21 01/26/21 01/26/21 15:00 19:00 20:00 20:47 Temp 98.4 98.4 98.4 98.4 Pulse 72 82 Resp 18 18 20 B/P (MAP) 144/58 (86) 168/69 (102) Pulse Ox 95 92 95 O2 Delivery Room Air Room Air Room Air Room Air 01/26/21 01/26/21 01/27/21 01/27/21 21:17 23:00 03:00 03:12 Temp 98.4 98.4 98.4 98.4 Pulse 68 67 Resp 20 18 18 20 B/P (MAP) 114/46 (68) 152/70 (97) Pulse Ox 94 95 94 O2 Delivery Room Air Room Air Room Air Room Air 01/27/21 01/27/21 01/27/21 01/27/21 03:42 07:04 07:40 08:31 Temp 98.0 98.0 Pulse 67 67 Resp 20 18 B/P (MAP) 144/55 (84) 144/55 Pulse Ox 94 95 O2 Delivery Room Air Room Air Room Air Intake and Output 01/26/21 01/26/21 01/27/21 14:59 22:59 06:59 Intake Total 120 ml Balance 120 ml Justicifation of Admission Dx: Justifications for Admission: Justification of Admission Dx: Yes LINCOLN NDIAYE MD January 27, 2021 08:55
--- NOTE | 2021-01-27 08:59 | PDOC ---
PROGRESS NOTES Date of Service DATE: 01/27/21 TIME: 08:54 Subjective Subjective She admits pain mainly with movement. Objective Objective Vital Signs Date Time Temp Pulse Resp B/P (MAP) Pulse Ox O2 Delivery O2 Flow Rate FiO2 01/27/21 08:31 67 144/55 01/27/21 07:40 Room Air 01/27/21 07:04 98.0 18 95 98.0 Intake and Output 01/27/21 07:00 Intake Total 120 ml Balance 120 ml Intake Oral 120 ml # Voids 4 Physical Exam Physical Exam She is alert,supine in bed with TLSO in place and no change with her neurological status. She decided on not having kyphoplasty at this time. MRI scan of thoracic spine revealed acute T8 vertebral body compression fracture and epidural area hematoma over right side at T8-T10 level,which might be responsible for her right lower thoracic radiculitis. Assessment Assessment Problems Medical Problems: (1) Compression fracture of T8 vertebra Status: Acute Plan Plan of Care To d/c medrol dose pack,ibuprofen and anticoagulants and to SNF when medically stable. Comment Review of Relevant I have reviewed the following items felisha (where applicable) has been applied. Labs Laboratory Tests Test 01/25/21 11:26 01/25/21 16:16 01/25/21 23:27 01/26/21 08:04 Glucose (Fingerstick) 144 mg/dL (70-99) 115 mg/dL (70-99) 189 mg/dL (70-99) 142 mg/dL (70-99) Test 01/26/21 12:12 01/26/21 17:07 01/26/21 20:37 01/27/21 06:58 Glucose (Fingerstick) 164 mg/dL (70-99) 193 mg/dL (70-99) 150 mg/dL (70-99) 134 mg/dL (70-99) Laboratory Tests Test 01/26/21 12:12 01/26/21 17:07 01/26/21 20:37 01/27/21 06:58 Glucose (Fingerstick) 164 mg/dL (70-99) 193 mg/dL (70-99) 150 mg/dL (70-99) 134 mg/dL (70-99) Medications Current Medications Acetaminophen/ Hydrocodone Bitart (Lortab 5/325) 2 tab 1X ONCE PO Last administered on 01/23/21at 10:49; Start 01/23/21 at 10:45; Stop 01/23/21 at 10:47; Status DC Acetaminophen/ Hydrocodone Bitart (Lortab 5/325) 1 tab STK-MED ONCE .ROUTE ; Start 01/23/21 at 10:47; Stop 01/23/21 at 10:47; Status DC Ondansetron HCl (Zofran) 4 mg PRN Q8HRS PRN IV NAUSEA/VOMITING; Start 01/23/21 at 12:00; Stop 01/24/21 at 11:59; Status DC Morphine Sulfate (Morphine Sulfate) 2 mg PRN Q2HR PRN IV PAIN Last administered on 01/24/21at 01:47; Start 01/23/21 at 12:00; Stop 01/24/21 at 11:59; Status DC Oxycodone/ Acetaminophen (Percocet 5/325) 1 tab PRN Q4HRS PRN PO PAIN Last administered on 01/27/21at 03:12; Start 01/23/21 at 15:00 Polyethylene Glycol (miraLAX PACKET) 17 gm PRN DAILY PRN PO CONSTIPATION Last administered on 01/25/21 22:48; Start 01/23/21 at 15:00 Metformin HCl (Glucophage) 500 mg NOON PO Last administered on 01/26/21 12:26; Start 01/24/21 at 12:00 Lisinopril (Prinivil) 20 mg DAILY PO Last administered on 01/27/21 08:31; Start 01/24/21 at 09:00 Atorvastatin Calcium (Lipitor) 40 mg DAILY PO Last administered on 01/27/21 08:30; Start 01/24/21 at 09:00 Amlodipine Besylate (Norvasc) 2.5 mg 1X ONCE PO Last administered on 01/23/21at 15:53; Start 01/23/21 at 15:00; Stop 01/23/21 at 15:01; Status DC Hydrochlorothiazide (Microzide) 12.5 mg DAILY PO Last administered on 01/27/21 08:30; Start 01/24/21 at 09:00 Docusate Sodium (Colace) 100 mg DAILY PO Last administered on 01/27/21 08:30; Start 01/23/21 at 16:00 Enoxaparin Sodium (Lovenox Per Pharmacy Prophylaxis Dosing) 1 each PRN DAILY PRN MC SEE COMMENTS; Start 01/23/21 at 17:30 Enoxaparin Sodium (Lovenox 40mg Syringe) 40 mg Q24H SQ ; Start 01/23/21 at 18:00; Stop 01/24/21 at 18:48; Status DC Simethicone (Gas-X) 80 mg PRN Q2HR PRN PO GAS / BLOATING Last administered on 01/24/21at 15:27; Start 01/24/21 at 15:15 Enoxaparin Sodium (Lovenox 40mg Syringe) 40 mg Q24H SQ Last administered on 01/26/21at 20:56; Start 01/24/21 at 20:00 Bisacodyl (Dulcolax Tab) 10 mg DAILY PO Last administered on 01/27/21at 08:30; Start 01/25/21 at 09:00 Senna/Docusate Sodium (Senna Plus) 1 tab BID PO Last administered on 01/27/21at 08:30; Start 01/25/21 at 09:00 Docusate Sodium (Enemeez) 283 mg PRN DAILY PRN [place] CONSTIPATION; Start 01/25/21 at 09:00 Ibuprofen (Motrin) 800 mg TIDAC PO Last administered on 01/25/21at 17:30; Start 01/25/21 at 11:30; Stop 01/26/21 at 08:46; Status DC Pantoprazole Sodium (Protonix) 40 mg DAILYAC PO Last administered on 01/27/21 06:22; Start 01/25/21 at 09:30 Tizanidine HCl (Zanaflex) 4 mg Q8HRS PO Last administered on 01/27/21 06:23; Start 01/25/21 at 09:30 Methylprednisolone (Medrol) 8 mg BID PO Last administered on 01/26/21at 20:41; Start 01/26/21 at 09:00; Stop 01/26/21 at 21:01; Status DC Methylprednisolone (Medrol) 4 mg BIDPCLD PO Last administered on 01/26/21at 18:08; Start 01/26/21 at 12:30; Stop 01/26/21 at 17:31; Status DC Methylprednisolone (Medrol) 4 mg TIDPC PO Last administered on 01/27/21at 08:30; Start 01/27/21 at 08:30; Stop 01/27/21 at 17:31 Methylprednisolone (Medrol) 8 mg QHS PO ; Start 01/27/21 at 21:00; Stop 01/27/21 at 21:01 Methylprednisolone (Medrol) 4 mg QIDAFTMEAL PO ; Start 01/28/21 at 09:00; Stop 01/28/21 at 21:01 Methylprednisolone (Medrol) 4 mg TID PO ; Start 01/29/21 at 09:00; Stop 01/29/21 at 21:01 Methylprednisolone (Medrol) 4 mg BID PO ; Start 01/30/21 at 09:00; Stop 01/30/21 at 21:01 Methylprednisolone (Medrol) 4 mg DAILY PO ; Start 01/31/21 at 09:00; Stop 01/31/21 at 09:01 Active Scripts Active Reported Lisinopril-Hctz 20-12.5 Mg Tab (Lisinopril/Hydrochlorothiazide) 1 Each Tablet 1 Tab PO DAILY Metformin Hcl 500 Mg Tablet 500 Mg PO NOON Rosuvastatin Calcium 10 Mg Tablet 10 Mg PO DAILY Vitals/I & O Vital Sign - Last 24 Hours 01/26/21 01/26/21 01/26/21 01/26/21 08:56 08:57 11:00 12:26 Temp 98.6 98.6 Pulse 61 95 Resp 16 B/P (MAP) 157/107 140/54 (82) Pulse Ox 95 O2 Delivery Room Air Room Air Room Air 01/26/21 01/26/21 01/26/21 01/26/21 15:00 19:00 20:00 20:47 Temp 98.4 98.4 98.4 98.4 Pulse 72 82 Resp 18 18 20 B/P (MAP) 144/58 (86) 168/69 (102) Pulse Ox 95 92 95 O2 Delivery Room Air Room Air Room Air Room Air 01/26/21 01/26/21 01/27/21 01/27/21 21:17 23:00 03:00 03:12 Temp 98.4 98.4 98.4 98.4 Pulse 68 67 Resp 20 18 18 20 B/P (MAP) 114/46 (68) 152/70 (97) Pulse Ox 94 95 94 O2 Delivery Room Air Room Air Room Air Room Air 01/27/21 01/27/21 01/27/21 01/27/21 03:42 07:04 07:40 08:31 Temp 98.0 98.0 Pulse 67 67 Resp 20 18 B/P (MAP) 144/55 (84) 144/55 Pulse Ox 94 95 O2 Delivery Room Air Room Air Room Air Intake and Output 01/26/21 01/26/21 01/27/21 15:00 23:00 07:00 Intake Total 120 ml Balance 120 ml Justifications for Admission Other Justification RAKAN SALGUERO MD January 27, 2021 08:59
--- NOTE | 2021-01-27 10:12 | NUR ---
PITA following. Discussed with RN, pt has decided to wait on the kypho. [facility] advised they can take pt today. Dr. Jarvis notified. Awaiting COVID result and discharge orders. RN notified. [facility]ITA will continue to follow. Addendum: 01/27/21 at 1241 by DHRUV LEMA Discharge orders faxed to [facility]. Voicemail left for [facility] transportation. Addendum: 01/27/21 at 1349 by DHRUV LEMA Transportation arranged with [facility] for [address]. RN and Kelley Velasquez notified.
[2021-01-27 10:27] VITALS: BP 139/44
--- NOTE | 2021-01-27 11:06 | PDOC3 ---
Discharge Summary Date of Admission: January 23, 2021 Date of Discharge: January 27, 2021 Follow-Up: 1-2 days Admitting Diagnosis comment: HPI===== History of Present Illness History of Present Illness Ms. bland is a 70 year old female who is admitted for acute back pain after a fall. She was walking down stair, slipped on the carpet step, hit her back on the step . did not lose consciousness, and now has back pain, better with PO meds, will need soem more soon. she had questions about when she could get up or to shower. No head or neck injury. No pelvic pain, no extremity pain. [facility], DR SALGUERO d/harry condition good d/c meds see NOV discharge dx D/C PLANNING 36 MIN Assessment/Plan fall, acute back pain acute T8 fracture, seen by NS, will need back brace to get up, try PT and OT after marked narrowing of the right T8-T9 neuroforamen. mildly comminuted fracture of the T8 vertebral body with mild to moderate loss o f stature anteriorly and centrally to approximately 65 percent and wedge-shaped deformity. Fracture lines are seen throughout the vertebral body although there is no fracture lines in the pedicles. no retropulsion. obese, BMI 31 htn dm2, metformin subtle noncompressive epidural hematoma along the right ventral epidural space from T8 through T10. plan admit for acute intractable back pain, not-ambulatory until brace constipation risk, 2 meds Neurosurgery consult fam hx DVT, lovenox brace ordered, bedrest until brace available Consult Dr. Salguero d/c lovenox d/c to snf 01-27 d/w rn Justifications for Admission Justifications for Admission Other Justification History of Present Illness History of Present Illness Source Source: Chart review, Patient History of Present Illness History of Present Illness Ms. bland is a 70 year old female who is admitted for acute back pain after a fall. She was walking down stair, slipped on the carpet step, hit her back on the step. did not lose consciousness, and now has back pain, better with PO meds, will need soem more soon. she had questions about when she could get up or to shower. No head or neck injury. No pelvic pain, no extremity pain. Past Medical History Cardiovascular: HTN Musculoskeletal: low back pain Rheumatologic: No pertinent hx Endocrine: Diabetes Past Surgical History Past Surgical History: No pertinent history Family History Family History: Other (DVT) Social History Smoke: No ALCOHOL: none Drugs: None Current Problem List Problem List Problems Medical Problems: (1) Compression fracture of T8 vertebra Status: Acute Physical Exam General: Alert, Cooperative, mild distress Extremities: No cyanosis, No edema, Normal pulses Skin: No breakdown Current Medications Current Medications Current Medications Acetaminophen/ Hydrocodone Bitart (Lortab 5/325) 2 tab 1X ONCE PO Last administered on 01/23/21at 10:49; Start 01/23/21 at 10:45; Stop 01/23/21 at 10:47; Status DC Acetaminophen/ Hydrocodone Bitart (Lortab 5/325) 1 tab STK-MED ONCE .ROUTE ; Start 01/23/21 at 10:47; Stop 01/23/21 at 10:47; Status DC Ondansetron HCl (Zofran) 4 mg PRN Q8HRS PRN IV NAUSEA/VOMITING; Start 01/23/21 at 12:00; Stop 01/24/21 at 11:59 Morphine Sulfate (Morphine Sulfate) 2 mg PRN Q2HR PRN IV PAIN; Start 01/23/21 at 12:00; Stop 01/24/21 at 11:59 Oxycodone/ Acetaminophen (Percocet 5/325) 1 tab PRN Q4HRS PRN PO PAIN Last administered on 01/23/21at 15:57; Start 01/23/21 at 15:00 Polyethylene Glycol (miraLAX PACKET) 17 gm PRN DAILY PRN PO CONSTIPATION; Start 01/23/21 at 15:00 Metformin HCl (Glucophage) 500 mg NOON PO ; Start 01/24/21 at 12:00 Lisinopril (Prinivil) 20 mg DAILY PO ; Start 01/24/21 at 09:00 Atorvastatin Calcium (Lipitor) 40 mg DAILY PO ; Start 01/24/21 at 09:00 Amlodipine Besylate (Norvasc) 2.5 mg 1X ONCE PO Last administered on 01/23/21at 15:53; Start 01/23/21 at 15:00; Stop 01/23/21 at 15:01; Status DC Hydrochlorothiazide (Microzide) 12.5 mg DAILY PO ; Start 01/24/21 at 09:00 Docusate Sodium (Colace) 100 mg DAILY PO ; Start 01/23/21 at 16:00 Active Scripts Active Reported Lisinopril-Hctz 20-12.5 Mg Tab (Lisinopril/Hydrochlorothiazide) 1 Each Tablet 1 Tab PO DAILY Metformin Hcl 500 Mg Tablet 500 Mg PO NOON Rosuvastatin Calcium 10 Mg Tablet 10 Mg PO DAILY Allergies Allergies: Coded Allergies: acetaminophen (Verified Adverse Reaction, Unknown, 01/23/21) dizziness codeine (Verified Adverse Reaction, Unknown, 01/23/21) dizziness ROS General: No: Chills, Night Sweats, Fatigue, Malaise, Appetite, Other PSYCHOLOGICAL ROS: No: Anxiety, Behavioral Disorder, Concentration difficultie, Decreased libido, Depression, Disorientation, Hallucinations, Hostility, Irritablity, Memory difficulties, Mood Swings, Obsessive thoughts, Physical abuse, Sexual abuse, Sleep disturbances, Suicidal ideation, Other Eyes: No Blurry vision, No Decreased vision, No Double vision, No Dry eyes, No Excessive tearing, No Eye Pain, No Itchy Eyes, No Loss of vision, No Photophobia, No Scotomata, No Uses contacts, No Uses glasses, No Other HEENT: No: Heacaches, Visual Changes, Hearing change, Nasal congestion, Nasal discharge, Oral lesions, Sinus pain, Sore Throat, Epistaxis, Sneezing, Snoring, Tinnitus, Vertigo, Vocal changes, Other Respiratory: No: Cough, Hemoptysis, Orthopnea, Pleuritic Pain, Shortness of breath, SOB with excertion, Sputum Changes, Stridor, Tachypnea, Wheezing, Other Cardiovascular: No Chest Pain, No Palpitations, No Orthopnea, No Paroxysmal Noc. Dyspnea, No Edema, No Lt Headedness, No Other Gastrointestinal: Yes Constipation (at times); No Nausea, No Vomiting, No Abdominal Pain, No Diarrhea, No Melena, No Alvin tochezia, No Other Genitourinary: No Dysuria, No Frequency, No Incontinence, No Hematuria, No Retention, No Discharge, No Urgency, No Pain, No Flank Pain, No Other, No , No , No , No , No , No , No Musculoskeletal: Yes Joint Pain, Yes Joint Stiffness Neurological: Yes Gait Disturbance; No Behavorial Changes, No Bowel/Bladder ControlChng, No Confusion, No Dizziness, No Headaches, No Impaired Coord/balance, No Memory Loss, No Numbness/Tingling, No Seizures, No Speech Problems, No Tremors, No Visual Changes, No Weakness, No Other Skin: No Dry Skin, No Eczema, No Hair Changes, No Lumps, No Mole Changes, No Mottling, No Nail Changes, No Pruritus, No Rash, No Skin Lesion Changes, No Other, No Acne 5-05 pain 04/02 to snf rehab D/W RN D/W DR SALGUERO acute T8 fracture, seen by NS, will need back brace to get up, try PT and OT after marked narrowing of the right T8-T9 neuroforamen. mildly comminuted fracture of the T8 vertebral body with mild to moderate loss of stature anteriorly and centrally to approximately 65 percent and wedge-shaped deformity. Fracture lines are seen throughout the vertebral body although there is no fracture lines in the pedicles. no retropulsion. MRI L/S reviewed MRI THORACIC SPINE WO 01/26/2021 12:59 PM INDICATION: Right lower thoracic radiculitis. COMPARISON: CT thoracic spine 01/23/2021 TECHNIQUE: Multiplanar, multisequence MR imaging of the thoracic spine was performed without intravenous contrast. FINDINGS: There is a superior endplate compression fracture with diffuse marrow edema involving T8. Edema extends into the left T8 pedicle fracture extends through the anterior cortex. There is no significant retropulsion identified. There is no compressive epidural hematoma. However, there is subtle loss of the normal fat along the right ventral epidural space at T8-T9 extending inferiorly to the T10 vertebral level suggestive of a noncompressive ventral epidural hematoma. There is mild exaggerated kyphosis. Moderate disc height loss at T10-T11 with disc desiccation and posterior disc osteophyte complex. There is mild facet arthropathy. Mild left neuroforaminal stenosis. No significant spinal canal stenosis. Thoracic spinal cord signal intensity is normal in all sequences. No cord compression is identified. There is mild prevertebral edema at T7-T8 and T8-T9. Thoracic aorta is normal in caliber. No signal alteration of the thoracic aorta. Moderate size hiatal hernia. Small right pleural effusion. Trace left pleural effusion. IMPRESSION: Superior and inferior T8 compression fracture without significant retropulsion with associated marrow edema suggests acute to subacute finding. There is edema extending into the left pedicle at T8. There may be a subtle noncompressive epidural hematoma along the right ventral epidural space from T8 through T10. There is a posterior disc osteophyte complex at T10-T11 with mild left neuroforaminal stenosis. Electronically signed by: Jada Baum MD (01/26/2021 4:45 PM) [id number] DICTATED and SIGNED BY: JADA BAUM MD FINAL DIAGNOSIS Problems Medical Problems: (1) Compression fracture of T8 vertebra Status: Acute Brief Hospital Course Ms. Bland is a 70 old [sex] who presented with [ ] CONDITION AT DISCHARGE: Improved Discharge Medications Current Medications Acetaminophen/ Hydrocodone Bitart (Lortab 5/325) 2 tab 1X ONCE PO Last administered on 01/23/21at 10:49; Start 01/23/21 at 10:45; Stop 01/23/21 at 10:47; Status DC Acetaminophen/ Hydrocodone Bitart (Lortab 5/325) 1 tab STK-MED ONCE .ROUTE ; Start 01/23/21 at 10:47; Stop 01/23/21 at 10:47; Status DC Ondansetron HCl (Zofran) 4 mg PRN Q8HRS PRN IV NAUSEA/VOMITING; Start 01/23/21 at 12:00; Stop 01/24/21 at 11:59; Status DC Morphine Sulfate (Morphine Sulfate) 2 mg PRN Q2HR PRN IV PAIN Last administered on 01/24/21at 01:47; Start 01/23/21 at 12:00; Stop 01/24/21 at 11:59; Status DC Oxycodone/ Acetaminophen (Percocet 5/325) 1 tab PRN Q4HRS PRN PO PAIN Last administered on 01/27/21at 03:12; Start 01/23/21 at 15:00 Polyethylene Glycol (miraLAX PACKET) 17 gm PRN DAILY PRN PO CONSTIPATION Last administered on 01/25/21at 22:48; Start 01/23/21 at 15:00 Metformin HCl (Glucophage) 500 mg NOON PO Last administered on 01/26/21at 12:26; Start 01/24/21 at 12:00 Lisinopril (Prinivil) 20 mg DAILY PO Last administered on 01/27/21at 08:31; Start 01/24/21 at 09:00 Atorvastatin Calcium (Lipitor) 40 mg DAILY PO Last administered on 01/27/21at 08:30; Start 01/24/21 at 09:00 Amlodipine Besylate (Norvasc) 2.5 mg 1X ONCE PO Last administered on 01/23/21at 15:53; Start 01/23/21 at 15:00; Stop 01/23/21 at 15:01; Status DC Hydrochlorothiazide (Microzide) 12.5 mg DAILY PO Last administered on 01/27/21at 08:30; Start 01/24/21 at 09:00 Docusate Sodium (Colace) 100 mg DAILY PO Last administered on 01/27/21at 08:30; Start 01/23/21 at 16:00 Enoxaparin Sodium (Lovenox Per Pharmacy Prophylaxis Dosing) 1 each PRN DAILY PRN MC SEE COMMENTS; Start 01/23/21 at 17:30; Status Cancel Enoxaparin Sodium (Lovenox 40mg Syringe) 40 mg Q24H SQ ; Start 01/23/21 at 18:00; Stop 01/24/21 at 18:48; Status DC Simethicone (Gas-X) 80 mg PRN Q2HR PRN PO GAS / BLOATING Last administered on 01/24/21at 15:27; Start 01/24/21 at 15:15 Enoxaparin Sodium (Lovenox 40mg Syringe) 40 mg Q24H SQ Last administered on 01/26/21at 20:56; Start 01/24/21 at 20:00; Stop 01/27/21 at 09:00; Status DC Bisacodyl (Dulcolax Tab) 10 mg DAILY PO Last administered on 01/27/21at 08:30; Start 01/25/21 at 09:00 Senna/Docusate Sodium (Senna Plus) 1 tab BID PO Last administered on 01/27/21 08:30; Start 01/25/21 at 09:00 Docusate Sodium (Enemeez) 283 mg PRN DAILY PRN [place] CONSTIPATION; Start 01/25/21 at 09:00 Ibuprofen (Motrin) 800 mg TIDAC PO Last administered on 01/25/21at 17:30; Start 01/25/21 at 11:30; Stop 01/26/21 at 08:46; Status DC Pantoprazole Sodium (Protonix) 40 mg DAILYAC PO Last administered on 01/27/21at 06:22; Start 01/25/21 at 09:30 Tizanidine HCl (Zanaflex) 4 mg Q8HRS PO Last administered on 01/27/21at 06:23; Start 01/25/21 at 09:30 Methylprednisolone (Medrol) 8 mg BID PO Last administered on 01/26/21at 20:41; Start 01/26/21 at 09:00; Stop 01/26/21 at 21:01; Status DC Methylprednisolone (Medrol) 4 mg BIDPCLD PO Last administered on 01/26/21at 18:08; Start 01/26/21 at 12:30; Stop 01/26/21 at 17:31; Status DC Methylprednisolone (Medrol) 4 mg TIDPC PO Last administered on 01/27/21at 08:30; Start 01/27/21 at 08:30; Stop 01/27/21 at 09:04; Status DC Methylprednisolone (Medrol) 8 mg QHS PO ; Start 01/27/21 at 21:00; Stop 01/27/21 at 09:04; Status DC Methylprednisolone (Medrol) 4 mg QIDAFTMEAL PO ; Start 01/28/21 at 09:00; Stop 01/27/21 at 09:04; Status DC Methylprednisolone (Medrol) 4 mg TID PO ; Start 01/29/21 at 09:00; Stop 01/27/21 at 09:04; Status DC Methylprednisolone (Medrol) 4 mg BID PO ; Start 01/30/21 at 09:00; Stop 01/27/21 at 09:04; Status DC Methylprednisolone (Medrol) 4 mg DAILY PO ; Start 01/31/21 at 09:00; Stop 01/27/21 at 09:04; Status DC Active Scripts Active Reported Lisinopril-Hctz 20-12.5 Mg Tab (Lisinopril/Hydrochlorothiazide) 1 Each Tablet 1 Tab PO DAILY Metformin Hcl 500 Mg Tablet 500 Mg PO NOON Rosuvastatin Calcium 10 Mg Tablet 10 Mg PO DAILY Vital Signs Vital Signs Date Time Temp Pulse Resp B/P (MAP) Pulse Ox O2 Delivery O2 Flow Rate FiO2 01/27/21 10:27 98.6 102 18 139/44 (75) 95 Room Air 98.6 Labs Laboratory Tests Test 01/25/21 11:26 01/25/21 16:16 01/25/21 23:27 01/26/21 08:04 Glucose (Fingerstick) 144 mg/dL (70-99) 115 mg/dL (70-99) 189 mg/dL (70-99) 142 mg/dL (70-99) Test 01/26/21 12:12 01/26/21 15:35 01/26/21 17:07 01/26/21 20:37 Glucose (Fingerstick) 164 mg/dL (70-99) 193 mg/dL (70-99) 150 mg/dL (70-99) SARS-CoV-2 RNA (YARIEL) Negative (Negative) Test 01/27/21 06:58 Glucose (Fingerstick) 134 mg/dL (70-99) Laboratory Tests Test 01/26/21 12:12 01/26/21 15:35 01/26/21 17:07 01/26/21 20:37 Glucose (Fingerstick) 164 mg/dL (70-99) 193 mg/dL (70-99) 150 mg/dL (70-99) SARS-CoV-2 RNA (YARIEL) Negative (Negative) Test 01/27/21 06:58 Glucose (Fingerstick) 134 mg/dL (70-99) Allergies Allergies Coded Allergies Type Severity Reaction Last Updated Verified acetaminophen Adverse Reaction Unknown 01/23/21 Yes codeine Adverse Reaction Unknown 01/23/21 Yes Disposition/Orders: Other (D/C TO SNF) Justicifation of Admission Dx: Justifications for Admission: Justification of Admission Dx: Yes LINCOLN NDIAYE MD January 27, 2021 11:05
[2021-01-27] MEDS ORDERED: POLY17PO52 PO (11:15)
[2021-01-27] MEDS ORDERED: TIZA4TAB2 PO (11:15)
[2021-01-27] MEDS ORDERED: PANT40TA77 PO (11:15)
[2021-01-27] MEDS ORDERED: BISA5TAB4 PO (11:15)
[2021-01-27] MEDS ORDERED: SIME80TA13 PO (11:15)
[2021-01-27] MEDS ORDERED: OXYC1TAB15 PO (11:15)
--- NOTE | 2021-01-27 11:17 | SNU/HH DC ---
DISCHARGE ORDERS DISCHARGE INFORMATION: FINAL DIAGNOSIS Problems Medical Problems: (1) Compression fracture of T8 vertebra Status: Acute CONDITION ON DISCHARGE: Stable CODE STATUS: Code Status: Full SENIOR CARE: SNF STAY <30 DAYS: Yes HOSPICE: HOSPICE: No HOSPICE EVAL & TREAT: No LTAC: ADMIT TO LTAC: No POST DISCHARGE ORDERS: ACTIVITY ORDERS: Activity as tolerated WEIGHT BEARING STATUS: As tolerated DIET AFTER DISCHARGE: Cardiac CHECKS AFTER DISCHARGE: CHECKS AFTER DISCHARGE: Check blood press - daily FOLLOW-UP: PHYSICIAN FOLLOW-UP: PCP AT SNF TODAY ADDITIONAL FOLLOW-UP: DR SALGUERO 2 WEEKS LAB ORDERS FOR FOLLOW-UP: DR MENDIETA 2 WEEKS TREATMENT/EQUIPMENT ORDERS: ADAPTIVE EQUIPMENT NEEDED: Brace/splint, Front wheeled walker Physical Therapy For: Evalulation/Treatment Occupational Therapy For: Evaluation/Treatment Speech Language Pathology For: Evaluation/Treatment DISCHARGE MEDICATIONS: Home Meds Active Scripts Pantoprazole Sodium (PANTOPRAZOLE SODIUM ) 40 Mg Tablet., 40 MG PO DAILYAC for GERD for 30 Days, #30 TAB.SR Prov:LINCOLN NDIAYE MD 01/27/21 Polyethylene Glycol 3350 (POLYETHYLENE GLYCOL 3350) 17 Gm Powd.pack, 17 GM PO DC N DAILY PRN for CONSTIPATION for 30 Days, #30 PKT Prov:LINCOLN NDIAYE MD 01/27/21 Bisacodyl (BISACODYL) 5 Mg Tablet., 10 MG PO DAILY for CONSTIPATION for 30 Days, #60 TAB.SR Prov:LINCOLN NDIAYE MD 01/27/21 Simethicone (TN-ACID) 80 Mg Tab.chew, 80 MG PO PRN Q2HR PRN for GAS / BLOATING for 30 Days, #60 TAB.CHEW Prov:LINCOLN NDIAYE MD 01/27/21 Oxycodone/Apap 5-325 (PERCOCET 5-325 MG TABLET ) 1 Each Tablet, 1 TAB PO PRN Q4HRS PRN for PAIN for 14 Days, #60 TAB Prov:LINCOLN NDIAYE MD 01/27/21 Tizanidine Hcl (TIZANIDINE HCL) 4 Mg Tablet, 4 MG PO Q8HRS for BACK SPASMS for 14 Days, #42 TAB Prov:LINCOLN NDIAYE MD 01/27/21 Reported Medications Lisinopril/Hydrochlorothiazide (LISINOPRIL-HCTZ 20-12.5 MG TAB) 1 Each Tablet, 1 TAB PO DAILY for HTN, #30 TAB 5 Refills 01/23/21 Metformin Hcl (METFORMIN HCL) 500 Mg Tablet, 500 MG PO NOON for ANTI-DIABETIC, TAB 0 Refills 01/23/21 Rosuvastatin Calcium (Rosuvastatin Calcium) 10 Mg Tablet, 10 MG PO DAILY for high cholesterol, TAB 01/23/21 LINCOLN NDIAYE MD January 27, 2021 11:17
[2021-01-27] MEDS: metFORMIN 500 MG TABLET PO SCH (12:07)
--- NOTE | 2021-01-27 16:02 | NUR ---
Pt. transferred to via WC per transportation. EB gr on pt. Addendum: 01/27/21 at 1606 by ALHAJI REZA RN Pt. left at 1500.
[2021-01-28] MEDS ORDERED: methylPREDNISolone 4 MG TABLET. PO SCH (09:00)
[2021-01-29] MEDS ORDERED: methylPREDNISolone 4 MG TABLET. PO SCH (09:00)
[2021-01-30] MEDS ORDERED: methylPREDNISolone 4 MG TABLET. PO SCH (09:00)
[2021-01-31] MEDS ORDERED: methylPREDNISolone 4 MG TABLET. PO SCH (09:00)
== END 2021-01-27 15:05 | DRG 552 ==
LOC: ER 09:42 → 4 NORTH 11:45
PROVIDERS: ADMIT Internal Medicine; ATTEND Internal Medicine
DX: S22.069A Unspecified fracture of T7-T8 vertebra, initial encounter for closed fracture (principal); E11.42 Type 2 diabetes mellitus with diabetic polyneuropathy; E66.9 Obesity, unspecified; Z68.31 Body mass index [BMI] 31.0-31.9, adult; E78.00 Pure hypercholesterolemia, unspecified; G89.29 Other chronic pain; I10 Essential (primary) hypertension; Z51.5 Encounter for palliative care; M54.16 Radiculopathy, lumbar region; W01.0XXA Fall on same level from slipping, tripping and stumbling without subsequent striking against object, initial encounter; Z20.822 Contact with and (suspected) exposure to COVID-19; Z79.84 Long term (current) use of oral hypoglycemic drugs; Z79.899 Other long term (current) drug therapy; Z86.718 Personal history of other venous thrombosis and embolism; Z90.710 Acquired absence of both cervix and uterus; Z88.5 Allergy status to narcotic agent; Z88.8 Allergy status to other drugs, medicaments and biological substances; Y93.89 Activity, other specified; Y92.89 Other specified places as the place of occurrence of the external cause; Y99.8 Other external cause status; Z88.6 Allergy status to analgesic agent
CPT/HCPCS: 36415; 71100; 71250; 72128; 72131; 72146; 80053; 82565; 82962; 85025; 85610; J1650; J2270; J7509; U0003; U0005; 97110-GP; 97116-GP; 97530-GP; 97535-GO; 99285-25; G0378